=== PATIENT | female | born 1950 | race Caucasian/White ===

== ENCOUNTER → 2018-06-25 13:53 | Outpatient (CLI) | payer MEDICARE, SELFPAY ==
[2018-06-25 15:20] LABS: TSH 0.92 uIU/mL (0.358-3.74); Vitamin B12 341 pg/mL (193-986)
== END ==
PROVIDERS: Nurse Practitioner Adult Health; PCP Physician Assistant Medical; Visit Provider Psychiatry & Neurology Neurology
DX: G31.84 Mild cognitive impairment of uncertain or unknown etiology (principal)
CPT/HCPCS: 36415; 99215; 82607; 84443

== ENCOUNTER 2018-07-02 00:54 | Outpatient (CLI) | payer MEDICARE, SELFPAY ==
--- NOTE | 2018-07-02 08:30 | DI.MRI_ITS ---
SYMPTOM/DIAGNOSIS: COGNITIVE IMPAIRMENT, R41.89, MEMORY LOSS BRAIN MRI: Routine noncontrast examination. No priors for comparison. The ventricles and sulci are consistent with the patient's age. There are areas of T 2 hyperintensity in the white matter on the FLAIR and T 2 weighted images. The diffusion weighted images show no evidence of an acute infarct. No intracranial hemorrhage is seen. The ventricles are intact. The basilar cisterns are patent. No acute midline shift or mass effect is identified. There is a flow void present in the [place] of [place]. The orbits and retro- orbital soft tissues are unremarkable. IMPRESSION: Hyperintense T 2 signal in the white matter on the FLAIR and T 2 weighted images. The findings may reflect small vessel ischemic disease. Other demyelinating processes cannot be excluded. No evidence of an intracranial mass, hemorrhage or infarct.
== END 2018-07-02 01:14 ==
PROVIDERS: PCP Physician Assistant Medical; Visit Provider Nurse Practitioner Adult Health
DX: R41.89 Other symptoms and signs involving cognitive functions and awareness (principal); R41.3 Other amnesia
CPT/HCPCS: 70551

== ENCOUNTER 2018-10-06 15:01 | Outpatient (REF) | payer MEDICARE, SELFPAY ==
[2018-10-06 21:35] LABS: Abs Immature Grans 0.01 k/cumm (0.0-0.09); Absolute Basophil Count 0.05 k/cumm (0.0-0.2); Absolute Eosinophil Count 0.09 k/cumm (0.0-0.7); Absolute Lymphocyte Count 3.11 k/cumm (1.2-3.4); Absolute Neutrophil Count 5.92 k/cumm (1.2-6.7); Basophils % 0.5; Eosinophils % 0.9; HCT 37.2 % (36.0-46.0); HGB 11.9 g/dL (12.0-15.5); Immature Grans % 0.1; Lymphocytes % 31.2; Mean Corpuscular Volume 90.5 fL (80-95); Mean Platelet Volume 9.7 fL (8.0-11.0); Neutrophils % 59.3; Platelet Count 403 x1000/uL (130-400); RBC 4.11 m/cumm (4.00-5.20); White Blood Cell Count 9.98 k/cumm (4.4-10.8)
[2018-10-06 21:41] LABS: Iron 66 ug/dL (50-175); Total Iron Binding Capacity 311 ug/dL (250-450); Transferrin Sat 21 % (15-50)
[2018-10-06 22:06] LABS: ALT 16 U/L (12-78); AST 20 U/L (15-37); Albumin 3.8 g/dL (3.4-5.0); Alkaline Phosphatase 159 U/L (46-116); Anion Gap 12.7 mmol/L (3-11); BUN 20 mg/dL (7-18); Bilirubin, Total 0.5 mg/dL (0.2-1.0); CO2 25.3 mmol/L (21.0-32.0); CREATININE 1.09 mg/dL (0.55-1.02); Calcium 9.4 mg/dL (8.5-10.1); Chloride 100 mmol/L (98-107); Estimated GFR 49.92 (mL/min/1.73m2); Ferritin 74 ng/mL (8-388); Glucose 135 mg/dL (70-100); Potassium 4.1 mmol/L (3.5-5.1); Sodium 138 mmol/L (136-145); TSH (W/Ref FT4) 1.56 uIU/mL (0.358-3.74); Total Protein 7.5 g/dL (6.4-8.2); Vitamin B12 564 pg/mL (193-986)
== END 2018-10-06 15:21 ==
LOC: NCHCN 15:01
PROVIDERS: PCP Physician Assistant Medical; Visit Provider Specialist/Technologist Athletic Trainer
DX: D64.9 Anemia, unspecified (principal); R63.0 Anorexia; R63.4 Abnormal weight loss; R05 Cough
CPT/HCPCS: 80053; 82607; 82728; 82746; 83540; 83550; 84443; 85025

== ENCOUNTER 2018-11-04 00:44 | Outpatient (CLI) | payer MEDICARE, SELFPAY ==
--- NOTE | 2018-11-04 09:05 | DI.CT_ITS ---
SYMPTOM/DIAGNOSIS: RECENT WT LOSS, R63.4, H/O TOBACCU USE, Z87.891 CHEST/ABDOMEN/PELVIC CT: CT scan of the chest, abdomen and pelvis was performed following the uneventful administration of intravenous and oral contrast material. Comparison is made with 09/11/10. ABDOMEN AND PELVIS: The liver is normal in size. No evidence of a hepatic mass is seen. The portal and superior mesenteric veins are patent. The gallbladder is negative. No biliary ductal dilatation is present. There is no evidence of a pancreatic mass. The spleen is unremarkable as are the adrenal glands. The kidneys show normal and symmetric enhancement. No evidence of a solid renal mass or obstruction. There are hypodensities seen in the renal cortex. They are too small for further characterization but likely reflect small cysts. The urinary bladder is intact. The reproductive organs are unremarkable as visualized. There is atherosclerosis of the abdominal aorta but no aneurysmal dilatation is present. No significant abdominal or pelvic adenopathy, ascites or pneumoperitoneum is present. There is diverticulosis of the colon but no evidence of acute diverticulitis. There is a normal appendix present. There is diffuse thickening of the wall of the duodenum. The remainder of the bowel is unremarkable. No aggressive osseous lesions are seen. IMPRESSION: 1. No evidence of an abdominal or pelvic mass, adenopathy or ascites. 2. Diffuse thickening of the wall of the duodenum. This may represent an enteritis. Please correlate clinically. CHEST: There is atherosclerosis of the thoracic aorta but no aneurysmal dilatation is seen. Heart size is within normal limits. No significant pericardial effusion is seen. Coronary artery calcifications are present. No significant thoracic adenopathy is identified. No pleural effusion or pneumothorax is identified. No focal consolidating infiltrates are present. Paraseptal emphysematous changes and pulmonary fibrosis is noted. The tracheobronchial tree appears grossly unremarkable. Degenerative changes are seen in the spine. IMPRESSION: 1. Findings of pulmonary fibrosis and COPD. 2. No acute pulmonary process. No evidence of a pulmonary mass or thoracic adenopathy.
[2018-11-04] MEDS: Omnipaque 350 MG/ML 50 ML BTL IJ (09:26)
[2018-11-04] MEDS: Breeza Beverage 473 ML BTL PO (09:27)
[2018-11-04] MEDS: Omnipaque 350 MG/ML 100 ML BTL IJ (09:28)
--- NOTE | 2018-11-04 09:30 | DI.MAMMO_ITS ---
SYMPTOMS/DIAGNOSIS: SCREENING, Z12.31 MAMMOGRAM: Mammograms were interpreted according to the usual protocol including computer analysis with CAD system, tomosynthesis and C view imaging. Comparison with prior examinations. Breast density C. No suspicious masses or microcalcifications are seen. The well circumscribed mass with associated calcifications in the upper inner quadrant of the right breast appears stable. IMPRESSION: No evidence for malignancy. Yearly mammography is recommended. Category 2. MQSA ASSESSMENT OF FINDINGS: Negative with benign findings. Category 2. Patient will receive a letter notifying them of these results. Bi-RADS category C. The breasts are heterogeneously dense, which may obscure small masses.
== END 2018-11-04 01:04 ==
PROVIDERS: PCP Family Medicine; Visit Provider Nurse Practitioner Family
DX: Z12.31 Encounter for screening mammogram for malignant neoplasm of breast (principal); R63.4 Abnormal weight loss; J84.10 Pulmonary fibrosis, unspecified; J44.9 Chronic obstructive pulmonary disease, unspecified; K31.89 Other diseases of stomach and duodenum
CPT/HCPCS: 74177; 77063; 77067; 71260; J3490; Q9967

== ENCOUNTER 2019-02-18 10:16 | Outpatient (REF) | payer MEDICARE, SELFPAY ==
[2019-02-18 21:04] LABS: Cholesterol 253 mg/dL (50-200); HDL Cholesterol 82 mg/dL (40-60); LDL CHOLESTEROL 143 mg/dL (<100); Triglyceride 102 mg/dL (30-150)
== END 2019-02-18 10:36 ==
LOC: NCHCN 10:16
PROVIDERS: PCP Family Medicine; Visit Provider Nurse Practitioner Family
DX: E78.5 Hyperlipidemia, unspecified (principal)
CPT/HCPCS: 80061; 83721

== ENCOUNTER 2019-04-13 17:11 | Outpatient (REF) | payer MEDICARE, SELFPAY ==
[2019-04-13 20:44] LABS: Abs Immature Grans 0.05 k/cumm (0.0-0.09); Absolute Basophil Count 0.04 k/cumm (0.0-0.2); Absolute Eosinophil Count 0.06 k/cumm (0.0-0.7); Absolute Lymphocyte Count 2.13 k/cumm (1.2-3.4); Absolute Monocyte Count 0.67 k/cumm (0.11-0.7); Absolute Neutrophil Count 6.52 k/cumm (1.2-6.7); Basophils % 0.4; Eosinophils % 0.6; HCT 38.3 % (36.0-46.0); HGB 12.3 g/dL (12.0-15.5); Immature Grans % 0.5; Lymphocytes % 22.5; Mean Corp. HGB Concentration 32.1 g/dL (32.0-36.0); Mean Corpuscular Hemoglobin 29.1 pg (27.0-33.0); Mean Corpuscular Volume 90.8 fL (80-95); Mean Platelet Volume 10.7 fL (8.0-11.0); Monocytes % 7.1; Neutrophils % 68.9; Platelet Count 338 x1000/uL (130-400); RBC 4.22 m/cumm (4.00-5.20); RBC Distribution Width 13.1 % (11.7-14.6); White Blood Cell Count 9.47 k/cumm (4.4-10.8)
[2019-04-13 21:09] LABS: ALT 24 U/L (12-78); AST 21 U/L (15-37); Albumin 3.8 g/dL (3.4-5.0); Alkaline Phosphatase 155 U/L (46-116); Anion Gap 12.8 mmol/L (3-11); BUN 25 mg/dL (7-18); Bilirubin, Total 0.9 mg/dL (0.2-1.0); CO2 24.2 mmol/L (21.0-32.0); CREATININE 1.05 mg/dL (0.55-1.02); Calcium 9.4 mg/dL (8.5-10.1); Chloride 101 mmol/L (98-107); Estimated GFR 51.96 (mL/min/1.73m2); Glucose 101 mg/dL (70-100); Potassium 4.3 mmol/L (3.5-5.1); Sodium 138 mmol/L (136-145); TSH 1.24 uIU/mL (0.358-3.74); Total Protein 7.2 g/dL (6.4-8.2)
[2019-04-13 21:22] LABS: Vitamin D 25 Total 27.4 ng/ml (30-100)
== END 2019-04-13 17:31 ==
LOC: NCHCN 17:11
PROVIDERS: PCP Family Medicine; Visit Provider Nurse Practitioner Family
DX: I10 Essential (primary) hypertension (principal); R63.4 Abnormal weight loss; E55.9 Vitamin D deficiency, unspecified; J44.9 Chronic obstructive pulmonary disease, unspecified; R63.0 Anorexia
CPT/HCPCS: 80053; 82306; 84443; 85025

== ENCOUNTER → 2019-05-27 08:14 | Outpatient (BNVA) | payer MEDICARE, SELFPAY | PROVIDERS: PCP Family Medicine; Referring Provider Nurse Practitioner Family; Visit Provider Nurse Practitioner Adult Health | DX: G31.84 Mild cognitive impairment of uncertain or unknown etiology (principal); F32.9 Major depressive disorder, single episode, unspecified | CPT/HCPCS: 99214 ==

== ENCOUNTER 2019-06-04 10:42 | Outpatient (REF) | payer MEDICARE, SELFPAY ==
[2019-06-04 21:03] LABS: Abs Immature Grans 0.02 k/cumm (0.0-0.09); Absolute Basophil Count 0.03 k/cumm (0.0-0.2); Absolute Eosinophil Count 0.18 k/cumm (0.0-0.7); Absolute Lymphocyte Count 2.01 k/cumm (1.2-3.4); Absolute Monocyte Count 0.47 k/cumm (0.11-0.7); Absolute Neutrophil Count 5.43 k/cumm (1.2-6.7); Basophils % 0.4; Eosinophils % 2.2; HCT 36.2 % (36.0-46.0); HGB 11.4 g/dL (12.0-15.5); Immature Grans % 0.2; Lymphocytes % 24.7; Mean Corp. HGB Concentration 31.5 g/dL (32.0-36.0); Mean Corpuscular Hemoglobin 29.2 pg (27.0-33.0); Mean Corpuscular Volume 92.8 fL (80-95); Mean Platelet Volume 9.9 fL (8.0-11.0); Monocytes % 5.8; Neutrophils % 66.7; Platelet Count 290 x1000/uL (130-400); RBC Distribution Width 13.5 % (11.7-14.6); White Blood Cell Count 8.14 k/cumm (4.4-10.8)
[2019-06-04 21:16] LABS: Anion Gap 9.4 mmol/L (3-11); BUN 23 mg/dL (7-18); CO2 26.6 mmol/L (21.0-32.0); CREATININE 1.24 mg/dL (0.55-1.02); Calcium 9.4 mg/dL (8.5-10.1); Chloride 105 mmol/L (98-107); Estimated GFR 42.89 (mL/min/1.73m2); Glucose 92 mg/dL (70-100); Potassium 5.9 mmol/L (3.5-5.1); Sodium 141 mmol/L (136-145)
== END 2019-06-04 11:02 ==
LOC: NCHCN 10:42
PROVIDERS: PCP Family Medicine; Visit Provider Nurse Practitioner Family
DX: R55 Syncope and collapse (principal)
CPT/HCPCS: 80048; 85025

== ENCOUNTER 2019-06-23 15:00 | Outpatient (REF) | payer MEDICARE, SELFPAY ==
[2019-06-23 21:35] LABS: Potassium 4.5 mmol/L (3.5-5.1)
== END 2019-06-23 15:20 ==
LOC: NCHCN 15:00
PROVIDERS: PCP Family Medicine; Visit Provider Nurse Practitioner Family
DX: R89.9 Unspecified abnormal finding in specimens from other organs, systems and tissues (principal)
CPT/HCPCS: 84132

== ENCOUNTER 2019-06-26 02:50 | Outpatient (CLI) | payer MEDICARE, SELFPAY ==
--- NOTE | 2019-07-02 07:03 | HOLTER_ITS ---
HOLTER MONITOR DATE OF DICTATION July 01, 2019 Baseline rhythm sinus. Rare single PAC. 2 bursts SVT, longest 4-beat duration, fastest 174 beats per minute. Rare single PVC. No VT. No bradycardia. No symptoms. Average heart rate 93 beats per minute, range 66-134 beats per minute. 48-Hour Study. Tacos Goddard M.D. SHON/delvis T - 07/02/2019
== END 2019-06-26 03:10 ==
PROVIDERS: PCP Family Medicine; Visit Provider Nurse Practitioner Family
DX: R55 Syncope and collapse (principal); I47.1 Supraventricular tachycardia
CPT/HCPCS: 93225

== ENCOUNTER 2019-06-29 14:59 | Outpatient (CLI) | payer MEDICARE, SELFPAY | END 2019-06-29 15:19 | PROVIDERS: PCP Family Medicine; Visit Provider Nurse Practitioner Family | DX: R55 Syncope and collapse (principal); I47.1 Supraventricular tachycardia | CPT/HCPCS: 93226 ==

== ENCOUNTER 2019-07-01 17:38 | Outpatient (CLI) | payer MEDICARE, SELFPAY | END 2019-07-01 17:58 | PROVIDERS: PCP Family Medicine; Referring Provider Family Medicine; Visit Provider Internal Medicine Interventional Cardiology | DX: R55 Syncope and collapse (principal); I47.1 Supraventricular tachycardia | CPT/HCPCS: 93227 ==

== ENCOUNTER 2019-07-30 02:07 | Outpatient (CLI) | payer MEDICARE, SELFPAY ==
--- NOTE | 2019-07-30 10:20 | DI.US_ITS ---
APPROVED REPORT EXAM: Comprehensive 2D, Doppler, and color-flow Echocardiogram Indications: syncope r55. ? valve disease or diastolic heart dysfunction Left Ventricle The left ventricle is normal. Left ventricular systolic function is normal. The posterior wall thickn ess is normal. The septum is normal. There is normal LV segmental wall motion. There is grade 1 diast olic dysfunction with normal left atrial pressure. LVEF is 50-54%. Right Ventricle The right ventricle is normal size. The right ventricular systolic function is normal. Atria The left atrium is small. The right atrium size is normal. Aortic Valve Aortic valve is probably trileaflet. There is no aortic valvular stenosis. Moderate aortic regurgitat ion. Mitral Valve The anterior mitral valve is mildly thickened. 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 Tricuspid Valve The tricuspid valve is normal in structure. Mild tricuspid regurgitation. TR V-max equals 2.82 m/s. T R peak gradient equals 31.8 mmHg Pulmonic Valve The pulmonary valve is normal in structure. Great Vessels The aortic root size is normal. The IVC is normal in size and collapses >50% with inspiration. Pericardium There is no pericardial effusion. There is no pleural effusion. 2D Dimensions IVSd 0.9 cm F: 0.6-1.0 PWd 0.9 cm F: 0.6 - 1.0 LVDd 4.0 cm F: 3.9 - 5.3 LVDs 2.8 cm F: 2.2 - 3.5 Aortic Root 3.1 cm F: 2.7 - 3.3 Left Atrium 2.4 cm F: 2.7 - 3.8 LVOT 1.9 cm (M/F) 1.5-2.5 LVEF (Guerrero's) 54.5 % F: 54 - 74 LV Volume Index 33.8 mL/m2 F: 29 - 61 FS 29.8 % LV Diastology E/A Ratio 0.7 MED E' 0.1 (<0.07 m/s) LV E/e MED 6.3 (>14) LAT E' 0.1 (<0.1 m/s) LV E/e LAT 4.9 (>14) Aortic Valve LVOT Peak Valeriano. 1.2 m/s LVOT Peak Gr. 5.7 mmHg LVOT Mean Gr. 3.0 mmHg LVOT VTI 0.2 m AI PHT 328.5 msec AO VTI 0.3 (0.18-0.25 m) FARA (VTI) 1.2 (2.5-4.5 cm2) Mitral Valve MV A Velocity 0.7 (0.4-1.3 m/s) E/A Ratio 0.7 MV Decel. Time 229.0 (160-240 msec) MV PHT 66.4 msec MVA PHT 3.3 cm2 Tricuspid Valve TR P. Velocity 2.8 m/s TR P. Gradient 31.8 mmHg Conclusion Left Ventricle : The left ventricle is normal. Left ventricular systolic function is normal. The post erior wall thickness is normal. The septum is normal. There is normal LV segmental wall motion. There is grade 1 diastolic dysfunction with normal left atrial pressure. LVEF is 50-54%. Right Ventricle : The right ventricle is normal size. The right ventricular systolic function is norm al. Atria : The left atrium is small. The right atrium size is normal. Aortic Valve : Aortic valve is probably trileaflet. There is no aortic valvular stenosis. Moderate a ortic regurgitation. Mitral Valve : The anterior mitral valve is mildly thickened. 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 Tricuspid Valve : The tricuspid valve is normal in structure. Mild tricuspid regurgitation. TR V-max equals 2.82 m/s. TR peak gradient equals 31.8 mmHg which corresponds with an RV pressure that is edison rderline elevated. Great Vessels : The aortic root size is normal. Pericardium : There is no pericardial effusion. There is no pleural effusion. Great Vessels : The IVC is normal in size and collapses >50% with inspiration.
== END 2019-07-30 02:27 ==
PROVIDERS: PCP Nurse Practitioner Family; Visit Provider Nurse Practitioner Family
DX: R55 Syncope and collapse (principal); I50.1 Left ventricular failure, unspecified; I35.1 Nonrheumatic aortic (valve) insufficiency; I36.1 Nonrheumatic tricuspid (valve) insufficiency
CPT/HCPCS: 93306

== ENCOUNTER 2019-08-03 01:09 | Outpatient (CLI) | payer MEDICARE, SELFPAY ==
--- NOTE | 2019-08-03 15:19 | DI.MRI_ITS ---
EXAM: MR BRAIN WO CLINICAL HISTORY: COGNITIVE CHANGES R41.89. TECHNIQUE: Multiplanar multisequence MRI was performed. COMPARISON: MR brain wo from 07/02/2018 FINDINGS: MR examination of brain was performed according to the usual protocol. There is mild generalized cer ebral atrophy there are periventricular areas of abnormal signal consistent microvascular ischemic ch anges, little interval change in appearance comparison previous examination 03/16/2018. No other sig nificant signal identified in the brain. The orbital and temporal bone structures appear intact. Th ere is grossly normal flow-void [id number] vasculature. Diffusion-weighted imaging shows no ev idence infarction. Susceptibility weighted imaging shows no evidence of hemorrhage. IMPRESSION: Findings consistent with microvascular ischemic changes of white matter. No gross interval change fr om 07/02/2018.
== END 2019-08-03 01:29 ==
PROVIDERS: PCP Nurse Practitioner Family; Visit Provider Nurse Practitioner Family
DX: R41.89 Other symptoms and signs involving cognitive functions and awareness (principal); R90.82 White matter disease, unspecified
CPT/HCPCS: 70551

== ENCOUNTER 2019-09-22 11:03 | Outpatient (REF) | payer MEDICARE, SELFPAY ==
[2019-09-22 19:51] LABS: Anion Gap 10.9 mmol/L (3-11); BUN 44 mg/dL (7-18); CO2 26.1 mmol/L (21.0-32.0); CREATININE 1.42 mg/dL (0.55-1.02); Calcium 9.4 mg/dL (8.5-10.1); Chloride 103 mmol/L (98-107); Estimated GFR 36.68 (mL/min/1.73m2); Glucose 94 mg/dL (74-106); Sodium 140 mmol/L (136-145)
== END 2019-09-22 11:23 ==
LOC: NCHCN 11:03
PROVIDERS: PCP Nurse Practitioner Family; Visit Provider Nurse Practitioner Family
DX: I10 Essential (primary) hypertension (principal)
CPT/HCPCS: 80048

== ENCOUNTER 2019-10-02 07:46 | Outpatient (CLI) | payer MEDICARE, SELFPAY | END 2019-10-02 08:06 | PROVIDERS: PCP Nurse Practitioner Family; Visit Provider Internal Medicine Cardiovascular Disease | DX: I51.89 Other ill-defined heart diseases (principal); I35.1 Nonrheumatic aortic (valve) insufficiency | CPT/HCPCS: 99204; 99215; 93005; 93010 ==

== ENCOUNTER 2019-10-15 10:22 | Outpatient (CLI) | payer MEDICARE, SELFPAY ==
--- NOTE | 2019-10-15 11:45 | DI.RAD_ITS ---
EXAM: XR SHOULDER LT COMPLETE 2+V CLINICAL HISTORY: LT SHOULDER PAIN, M25.512, LT SHOULDER AND SCAPULAR PAIN AFTER FALL TECHNIQUE: COMPARISON: No exams were available for comparison FINDINGS: Five views were obtained. There soft tissue calcifications which appear to be projected adjacent to the tip of the coracoid. There is an apparent small bone island of the humeral head. No other bony or soft tissue abnormality seen. IMPRESSION:
== END 2019-10-15 10:42 ==
PROVIDERS: PCP Nurse Practitioner Family; Visit Provider Nurse Practitioner Family
DX: M25.512 Pain in left shoulder (principal); M89.8X2 Other specified disorders of bone, upper arm
CPT/HCPCS: 73030

== ENCOUNTER 2019-10-19 07:08 | Inpatient (IN) | payer MEDICARE, SELFPAY ==
[2019-10-19] VITALS (63 sets, daily range): BP systolic 128–190; BP diastolic 50–95; PULSE 94–134; RESP 14–31; TEMP 36.6–37.6; O2SAT 92–97
--- NOTE | 2019-10-19 07:28 | ED.GENADUL_ITS ---
Discharge Plan Discharge Details Chief Complaint: GenMedical Primary Care Provider: Jojo Burrell ED Provider: Peg Wilson Home Meds and New Rx's Prescriptions: No Action Spiriva with HandiHaler 18 mcg capsule, w/inhalation device 1 cap IH DAILY RF: 0 cyclobenzaprine 10 mg tablet 10 mg PO TID RF: 0 ranitidine HCl 300 mg capsule 300 mg PO BID RF: 0 cyanocobalamin (vitamin B-12) 1,000 mcg capsule 1,000 mcg PO DAILY RF: 0 cholecalciferol (vitamin D3) 1,000 unit capsule 1,000 unit PO DAILY RF: 0 sertraline [Zoloft] 50 mg tablet 150 mg PO DAILY RF: 0 memantine [Namenda] 5 mg Tablet 5 mg PO QPM RF: 0 atorvastatin [Lipitor] 20 mg Tablet 20 mg PO QPM RF: 0 Medical Decision Making Aury Alva is a 69-year-old woman with a history of alcohol abuse until 2017, progressive memory/cognitive problems, hypertension, hyperlipidemia, COPD, depression, rheumatoid arthritis who presented to the emergency department with worsening mental status, not eating or drinking for the past 3 days. I discussed the patient with Jojo Burrell, patient's PCP, who reported that due to her memory issues patient is a poor historian.in addition, patient's has a history of TBI and is also a poor historian. Jojo had reports that patient has a long history of heavy marijuana use with marijuana being purchased from questionable sources and thus with possible contaminants, decreased appetite and weight loss over the past year. She reports that when she saw the patient 2 weeks ago, patient had continued memory issues but was interactive, verbal, able to partake in her own self-care. It does appear that patient's physical examination today does not represent a chronic progressive process. Concern for altered mental status of unknown etiology, possible metabolic/electrolyte derangement, UTI, occult pneumonia, neoplasm, CVA. Doubt meningitis, ACS, toxic ingestion/exposure as etiology. Plan for EKG, CT head, chest x-ray, screening labs, IV fluid hydration, telemetry. Anticipate admission. Difficulty obtaining CT head. Patient tries to lie on her left side repeatedly well on CT table. She does not appear to be in any discomfort, and does not appear agitated, but does not follow instructions. Ativan given, 0.5 mg x 3, able to obtain CT head. CT head negative for acute process. Chest x-ray only able to be obtained in left lateral decubitus position secondary to patient not cooperating. Question of by basilar infiltrate per radiology, however patient has no clinical pneumonia on exam. Will hold antibiotics at this time. Calcium 14. Unclear etiology, plan for continued IV fluid hydration, calcitonin. Call Dr. Wilkes for admission, who requested abdominal imaging given elevated liver enzymes. Given difficulty with obtaining CT head, plan for ultrasound abdomen/pelvis, at this time do not suspect non-hepatobiliary emergent intra-abdominal process, given Pt not complaining of pain, no vomiting or diarrhea, no abdominal tenderness to palpation. Ultrasound shows cirrhosis. Procalcitonin 12. At this time given possible pneumonia on chest x-ray, no source of patient's altered mental status, delays with imaging, plan for empiric antibiotics. Will attempt CT chest/abdomen/pelvis with IM Haldol for further delineation. Patient underwent CT chest abdomen pelvis without issue after Haldol, shows possible primary pulmonary mass with likely metastatic disease to bone, liver, also with adenopathy. I informed patient's of results. He wishes for patient to be admitted to the hospital for IV fluid hydration, electrolyte correction, understands patient with poor prognosis and ultimately would like patient to go home on hospice. Plan for admission. Medical Records Medical records reviewed: Yes I reviewed the patient's medical records. Imaging Data Radiologic Study: Attestation: I personally reviewed and interpreted this imaging study as follows: Radiologist's impression: EXAM: CT CHEST/ABD/PEL W CLINICAL HISTORY: AMS, elevated LFTs, poor quality CXR TECHNIQUE: Imaging Protocol: Axial computed tomography images with coronal and sagittal reformatted images were created and reviewed CONTRAST MATERIAL: Intravenous: Omnipaque 350 Contrast volume:100 mL contrast route:IV - Oral: No FINDINGS: CHEST: Tracheobronchial tree: Patent where visualized. Mediastinum and Jacqueline: There are enlarged mediastinal lymph nodes. The largest is in the subcarinal region and measures 3.6 x 3.1 centimeters. Right hilar adenopathy is present. Pulmonary parenchyma: There is a 2.3 x 2 centimeter soft tissue mass in the right lower lobe. Findings are suspicious for primary lung cancer. Dependent atelectatic changes are seen in the lungs. Paraseptal emphysematous changes are seen in the lungs. No focal consolidating infiltrates are present. Pleura: No effusion or pneumothorax. Lymph nodes: Mediastinal and right hilar adenopathy as discussed above Aorta: Atherosclerosis. Heart: No cardiomegaly or pericardial effusion. Coronary artery calcifications are present. Bones: Lucencies are seen in the bones suspicious for metastatic disease. There is cortical disruption seen at the anterior aspect of the T12 vertebral body. ABDOMEN: Liver: There are innumerable hypodense masses scattered throughout the liver. Portal, superior mesenteric and splenic veins are patent. Hepatomegaly. Gallbladder and biliary tract: No radiodense calculus or dilation. Pancreas: Normal density, no abnormal calcifications or inflammatory process. Spleen: Normal. Kidneys: Normal size, contour and axis. No radiodense stones or obstructive uropathy. No masses seen. Adrenal glands: There nodularity of the left adrenal gland. The right adrenal gland is unremarkable. Aorta: Atherosclerosis. No aneurysmal dilatation. Lymph nodes: Within normal limits. PELVIS: Bladder: Symmetric distention, no gross wall thickening. Bowel: There is diverticulosis of the colon but no evidence of acute diverticulitis. Bowel shows no evidence of obstruction or inflammation. There is no evidence of an acute appendicitis. A normal appendix is seen in the right lower quadrant. Peritoneal cavity: There is a small amount of pelvic ascites. No pneumoperitoneum is present. Bones: Degenerative changes are seen in the spine. There are lucencies seen in the bones suspicious for metastatic disease. Reproductive organs: Within normal limits as visualized. IMPRESSION: 1. Multiple hepatic masses suspicious for metastatic disease. 2. Bones suspicious for metastatic disease. 3. Small amount of pelvic ascites. 4. 2.3 x 2 centimeter soft tissue mass in the right lower lobe suspicious for primary pulmonary carcinoma. 5. Thoracic adenopathy. EXAM: CT HEAD WO CLINICAL HISTORY: AMS TECHNIQUE: The exam was performed according to the usual protocol without contrast. COMPARISON: No exams were available for comparison FINDINGS: The ventricles and sulci are consistent with the patient's age. There are areas of decreased attenuation in the white matter consistent with small vessel ischemic disease. No acute intracranial hemorrhage, midline shift or mass effect is present. The ventricles are intact. The basilar cisterns are patent. Visualized paranasal sinuses are clear. The mastoid air cells are well pneumatized. The calvarium is intact. IMPRESSION: No acute intracranial process. These findings were discussed with the emergency department on the date of the examination. EXAM: XR CHEST 2V PA LATERAL INDICATION: AMS. COMPARISON: CHEST 2 VIEWS PA,LAT from 05/19/2018 TECHNIQUE: 2D digital imaging was performed. FINDINGS: The study is suboptimal due to patient positioning and external artifact. The heart size and pulmonary vasculature are within normal limits. There is a question of an infiltrate seen in the lung bases bilaterally. No effusion is seen. No definite pneumothorax is appreciated. Degenerative changes are seen in the spine. IMPRESSION: 1. Suboptimal examination due to patient positioning. A repeat PA and lateral view of the chest should be considered for further evaluation. 2. Question of bilateral basilar infiltrate. This may represent atelectasis or pneumonia. Please correlate clinically. EXAM: US ABDOMEN CLINICAL HISTORY: AMS, elevated liver enzymes TECHNIQUE: Ultrasound performed using standard protocol. FINDINGS: The aorta is unremarkable. The inferior vena cava is unremarkable. The liver is enlarged measuring 19.6 centimeters. It is heterogeneous. No discrete mass is seen. There is a lobulated contour of the liver suggesting hepatic cirrhosis. There is hepatopetal flow through the portal vein. The gallbladder is unremarkable. There is a negative sonographic Mae sign. The common duct is within normal limits at 3 millimeters. The spleen, pancreas and kidneys are unremarkable. No free fluid is seen in the abdomen. IMPRESSION: Enlarged heterogeneous liver with findings suggestive of hepatic cirrhosis. No evidence of a hepatic mass sonographically. Lab Data Lab results reviewed: Yes I reviewed the patient's lab results. Labs: 10/19/19 08:30 Blood Blood Culture - Pending 10/19/19 08:15 Blood Blood Culture - Pending Laboratory Tests Range/Units 10/19/19 10/19/19 10/19/19 07:30 07:30 07:30 WBC (4.4-10.8) k/cumm 11.64 H RBC (4.00-5.20) m/cumm 4.70 Hgb (12.0-15.5) g/dL 13.2 Hct (36.0-46.0) % 39.5 MCV (80-95) fL 84.0 MCH (27.0-33.0) pg 28.1 MCHC (32.0-36.0) g/dL 33.4 RDW (11.7-14.6) % 14.5 Plt Count (130-400) x1000/uL 211 MPV (8.0-11.0) fL 11.7 H Immature Gran % 0.8 Neutrophils % 79.4 Lymphocytes % 11.3 Monocytes % 8.3 Eosinophils % 0.0 Basophils % 0.2 Absolute Neutrophils (1.2-6.7) k/cumm 9.24 H Absolute Lymphocytes (1.2-3.4) k/cumm 1.32 Absolute Monocytes (0.11-0.7) k/cumm 0.97 H Absolute Eosinophils (0.0-0.7) k/cumm 0.00 Absolute Basophils (0.0-0.2) k/cumm 0.02 Sodium (136-145) mmol/L 130 L Potassium (3.5-5.1) mmol/L 3.9 Chloride (98-107) mmol/L 94 L Carbon Dioxide (21.0-32.0) mmol/L 28.4 Anion Gap (3-11) mmol/L 7.6 BUN (7-18) mg/dL 28 H Creatinine (0.55-1.02) mg/dL 1.09 H Estimated GFR/1.73 m2 (mL/min/1.73m2) 49.77 Glucose (74-106) mg/dL 108 H Lactate (0.6-1.4) mmol/L 1.6 H Calcium (8.5-10.1) mg/dL 14.0 H* Magnesium (1.8-2.4) mg/dL 1.5 L Total Bilirubin (0.2-1.0) mg/dL 1.4 H AST (15-37) U/L 377 H ALT (14-59) U/L 118 H Alkaline Phosphatase (46-116) U/L 351 H Ammonia (11-32) umol/L Troponin I (<0.06) ng/Ml < 0.05 Total Protein (6.4-8.2) g/dL 8.2 Albumin (3.4-5.0) g/dL 4.0 Procalcitonin ng/mL TSH (0.36-3.74) uIU/mL 2.23 Urine Color (Yellow) Urine Clarity (Clear) Urine pH (5-8) Ur Specific Windfall (1.005-1.025) Urine Protein (Negative) mg/dL Urine Ketones (Negative) mg/dL Urine Blood (Negative) Urine Nitrite (Negative) Urine Bilirubin (Negative) Urine Urobilinogen (Up TO 0.2) EU/dL Ur Leukocyte Esterase (Negative) Urine RBC (0-2) HPF Urine WBC (0-5) HPF Ur Epithelial Cells (Negative) HPF Urine Crystals (Negative) HPF Urine Bacteria (Negative) HPF Urine Casts (Negative) LPF Urine Mucus (Negative) Urine Other (Negative) Ur Culture Indicated? Urine Glucose (Negative) mg/dL Urine Opiates Screen (Negative) Urine Methadone Screen (Negative) Acetaminophen (10-30) ug/mL Ur Barbiturates Screen (Negative) Ur Tricyclics Screen (Negative) Ur Amphetamines Screen (Negative) U Benzodiazepines Scrn (Negative) Urine Cocaine Screen (Negative) Ur THC Screen (Negative) Range/Units 10/19/19 10/19/19 10/19/19 07:30 08:06 08:06 WBC (4.4-10.8) k/cumm RBC (4.00-5.20) m/cumm Hgb (12.0-15.5) g/dL Hct (36.0-46.0) % MCV (80-95) fL MCH (27.0-33.0) pg MCHC (32.0-36.0) g/dL RDW (11.7-14.6) % Plt Count (130-400) x1000/uL MPV (8.0-11.0) fL Immature Gran % Neutrophils % Lymphocytes % Monocytes % Eosinophils % Basophils % Absolute Neutrophils (1.2-6.7) k/cumm Absolute Lymphocytes (1.2-3.4) k/cumm Absolute Monocytes (0.11-0.7) k/cumm Absolute Eosinophils (0.0-0.7) k/cumm Absolute Basophils (0.0-0.2) k/cumm Sodium (136-145) mmol/L Potassium (3.5-5.1) mmol/L Chloride (98-107) mmol/L Carbon Dioxide (21.0-32.0) mmol/L Anion Gap (3-11) mmol/L BUN (7-18) mg/dL Creatinine (0.55-1.02) mg/dL Estimated GFR/1.73 m2 (mL/min/1.73m2) Glucose (74-106) mg/dL Lactate (0.6-1.4) mmol/L Calcium (8.5-10.1) mg/dL Magnesium (1.8-2.4) mg/dL Total Bilirubin (0.2-1.0) mg/dL AST (15-37) U/L ALT (14-59) U/L Alkaline Phosphatase (46-116) U/L Ammonia (11-32) umol/L Troponin I (<0.06) ng/Ml Total Protein (6.4-8.2) g/dL Albumin (3.4-5.0) g/dL Procalcitonin ng/mL TSH (0.36-3.74) uIU/mL Urine Color (Yellow) Yellow Urine Clarity (Clear) Clear Urine pH (5-8) 5.5 Ur Specific Windfall (1.005-1.025) >= 1.030 H Urine Protein (Negative) mg/dL 100 H Urine Ketones (Negative) mg/dL Trace H Urine Blood (Negative) Small H Urine Nitrite (Negative) Negative Urine Bilirubin (Negative) Small H Urine Urobilinogen (Up TO 0.2) EU/dL 0.2 Ur Leukocyte Esterase (Negative) Negative Urine RBC (0-2) HPF 0-2 Urine WBC (0-5) HPF 3-5 Ur Epithelial Cells (Negative) HPF Few Urine Crystals (Negative) HPF Few amorphous Urine Bacteria (Negative) HPF Few Urine Casts (Negative) LPF 0-2 coarse granular Urine Mucus (Negative) Negative Urine Other (Negative) Ur Culture Indicated? No Urine Glucose (Negative) mg/dL Negative Urine Opiates Screen (Negative) Negative Urine Methadone Screen (Negative) Negative Acetaminophen (10-30) ug/mL < 2 L Ur Barbiturates Screen (Negative) Negative Ur Tricyclics Screen (Negative) Negative Ur Amphetamines Screen (Negative) Negative U Benzodiazepines Scrn (Negative) Negative Urine Cocaine Screen (Negative) Negative Ur THC Screen (Negative) Positive A Range/Units 10/19/19 10/19/19 10/19/19 10:53 12: 12:25 WBC (4.4-10.8) k/cumm RBC (4.00-5.20) m/cumm Hgb (12.0-15.5) g/dL Hct (36.0-46.0) % MCV (80-95) fL MCH (27.0-33.0) pg MCHC (32.0-36.0) g/dL RDW (11.7-14.6) % Plt Count (130-400) x1000/uL MPV (8.0-11.0) fL Immature Gran % Neutrophils % Lymphocytes % Monocytes % Eosinophils % Basophils % Absolute Neutrophils (1.2-6.7) k/cumm Absolute Lymphocytes (1.2-3.4) k/cumm Absolute Monocytes (0.11-0.7) k/cumm Absolute Eosinophils (0.0-0.7) k/cumm Absolute Basophils (0.0-0.2) k/cumm Sodium (136-145) mmol/L 141 D Potassium (3.5-5.1) mmol/L 4.0 Chloride (98-107) mmol/L 103 Carbon Dioxide (21.0-32.0) mmol/L 27.1 Anion Gap (3-11) mmol/L 10.9 BUN (7-18) mg/dL 25 H Creatinine (0.55-1.02) mg/dL 1.03 H Estimated GFR/1.73 m2 (mL/min/1.73m2) 53.13 Glucose (74-106) mg/dL 100 Lactate (0.6-1.4) mmol/L 1.4 Calcium (8.5-10.1) mg/dL 12.0 H* Magnesium (1.8-2.4) mg/dL Total Bilirubin (0.2-1.0) mg/dL 1.2 H AST (15-37) U/L 322 H ALT (14-59) U/L 101 H Alkaline Phosphatase (46-116) U/L 291 H Ammonia (11-32) umol/L Troponin I (<0.06) ng/Ml 0.05 Total Protein (6.4-8.2) g/dL 6.9 Albumin (3.4-5.0) g/dL 3.4 Procalcitonin ng/mL 12.2 TSH (0.36-3.74) uIU/mL Urine Color (Yellow) Urine Clarity (Clear) Urine pH (5-8) Ur Specific Windfall (1.005-1.025) Urine Protein (Negative) mg/dL Urine Ketones (Negative) mg/dL Urine Blood (Negative) Urine Nitrite (Negative) Urine Bilirubin (Negative) Urine Urobilinogen (Up TO 0.2) EU/dL Ur Leukocyte Esterase (Negative) Urine RBC (0-2) HPF Urine WBC (0-5) HPF Ur Epithelial Cells (Negative) HPF Urine Crystals (Negative) HPF Urine Bacteria (Negative) HPF Urine Casts (Negative) LPF Urine Mucus (Negative) Urine Other (Negative) Ur Culture Indicated? Urine Glucose (Negative) mg/dL Urine Opiates Screen (Negative) Urine Methadone Screen (Negative) Acetaminophen (10-30) ug/mL Ur Barbiturates Screen (Negative) Ur Tricyclics Screen (Negative) Ur Amphetamines Screen (Negative) U Benzodiazepines Scrn (Negative) Urine Cocaine Screen (Negative) Ur THC Screen (Negative) Range/Units 10/19/19 13:16 WBC (4.4-10.8) k/cumm RBC (4.00-5.20) m/cumm Hgb (12.0-15.5) g/dL Hct (36.0-46.0) % MCV (80-95) fL MCH (27.0-33.0) pg MCHC (32.0-36.0) g/dL RDW (11.7-14.6) % Plt Count (130-400) x1000/uL MPV (8.0-11.0) fL Immature Gran % Neutrophils % Lymphocytes % Monocytes % Eosinophils % Basophils % Absolute Neutrophils (1.2-6.7) k/cumm Absolute Lymphocytes (1.2-3.4) k/cumm Absolute Monocytes (0.11-0.7) k/cumm Absolute Eosinophils (0.0-0.7) k/cumm Absolute Basophils (0.0-0.2) k/cumm Sodium (136-145) mmol/L Potassium (3.5-5.1) mmol/L Chloride (98-107) mmol/L Carbon Dioxide (21.0-32.0) mmol/L Anion Gap (3-11) mmol/L BUN (7-18) mg/dL Creatinine (0.55-1.02) mg/dL Estimated GFR/1.73 m2 (mL/min/1.73m2) Glucose (74-106) mg/dL Lactate (0.6-1.4) mmol/L Calcium (8.5-10.1) mg/dL Magnesium (1.8-2.4) mg/dL Total Bilirubin (0.2-1.0) mg/dL AST (15-37) U/L ALT (14-59) U/L Alkaline Phosphatase (46-116) U/L Ammonia (11-32) umol/L 13 Troponin I (<0.06) ng/Ml Total Protein (6.4-8.2) g/dL Albumin (3.4-5.0) g/dL Procalcitonin ng/mL TSH (0.36-3.74) uIU/mL Urine Color (Yellow) Urine Clarity (Clear) Urine pH (5-8) Ur Specific Windfall (1.005-1.025) Urine Protein (Negative) mg/dL Urine Ketones (Negative) mg/dL Urine Blood (Negative) Urine Nitrite (Negative) Urine Bilirubin (Negative) Urine Urobilinogen (Up TO 0.2) EU/dL Ur Leukocyte Esterase (Negative) Urine RBC (0-2) HPF Urine WBC (0-5) HPF Ur Epithelial Cells (Negative) HPF Urine Crystals (Negative) HPF Urine Bacteria (Negative) HPF Urine Casts (Negative) LPF Urine Mucus (Negative) Urine Other (Negative) Ur Culture Indicated? Urine Glucose (Negative) mg/dL Urine Opiates Screen (Negative) Urine Methadone Screen (Negative) Acetaminophen (10-30) ug/mL Ur Barbiturates Screen (Negative) Ur Tricyclics Screen (Negative) Ur Amphetamines Screen (Negative) U Benzodiazepines Scrn (Negative) Urine Cocaine Screen (Negative) Ur THC Screen (Negative) ECG Data Attestation: I personally reviewed and interpreted this ECG (s) as follows: Interpretation: EKG shows sinus tachycardia 108 with normal axis, T wave inversion aVL, present on prior, change in ST morphology of V2 compared to prior, no STEMI, nondiagnostic EKG HPI General Mode of arrival: EMS . Date/Time Provider Initiated Documentation: 10/19/19 07:18 . Limitations to Documentation: altered mental status . Information obtained by: patient and family . HPI Narrative: Aury Alva is a 69-year-old woman with a history of hyperlipidemia, hypertension, GERD, depression, rheumatoid arthritis, cognitive decline presenting to the emergency department with 3 days of not eating or drinking. Patient is accompanied by her who provides most of the history. Per record review and 's report, patient has history of heavy alcohol use that ended in 2016. During that same year, patient also began to have apparent short-term memory issues. She has had progressive cognitive decline since that time, and saw neurology for this 05/15 and brain MRI 08/15 with no acute process identified. Patient has also had history of severe depression in the past few years and 4 times daily marijuana usage up until the past 3 days. Patient's reports that patient's memory and cognitive problems seem to have become much worse in the last 1 to 2 months. She has become incontinent of urine, she does not get out of bed, and she has become minimally verbal. Patient's reports that in the past 3 days patient has stopped eating or drinking anything. She also essentially does not walk at all at home. Patient's reports that she seems restless and agitated and has not been sleeping at all the past few nights either. He reports that he is concerned that she is in the process of dying. He states that if there is anything that can be done to make her more comfortable he would like that done today in the emergency department, but he states that he would like to bring her home to continue to care for her there. Related Data Home Medications Medication Instructions Recorded Confirmed cholecalciferol (vitamin D3) 25 1,000 unit PO DAILY 04/20/19 10/19/19 mcg (1,000 unit) capsule cyanocobalamin (vitamin B-12) 1,000 mcg PO DAILY 04/20/19 10/19/19 1,000 mcg capsule cyclobenzaprine 10 mg tablet 10 mg PO TID 04/20/19 10/19/19 ranitidine HCl 300 mg capsule 300 mg PO BID cap 04/20/19 10/19/19 tiotropium bromide 18 mcg capsule 1 cap IH DAILY 04/20/19 10/19/19 with inhalation device sertraline 50 mg tablet 150 mg PO DAILY tab 09/22/19 10/19/19 atorvastatin [Lipitor] 20 mg PO QPM 10/19/19 10/19/19 memantine [Namenda] 5 mg PO QPM 10/19/19 10/19/19 Allergies Allergy/AdvReac Type Severity Reaction Status Date / Time hydrochlorothiazide Allergy Intermediate swelling Unverified 10/19/19 09:20 Penicillins Allergy Mild rash Unverified 10/19/19 09:20 aspirin AdvReac Intermediate GI upset Unverified 10/19/19 09:20 codeine AdvReac Intermediate shakey and Unverified 10/19/19 09:20 jittery Caffiene AdvReac Intermediate GI Uncoded 10/19/19 09:20 Upset/pain General Stated Complaint: GenMedical RALPH: 3 Review of Systems Narrative: Constitutional: denies fevers, reports decreased appetite, weight loss, generalized weakness Eyes: denies eye pain ENT: denies ear pain, dental pain, sore throat Cardiovascular: denies chest pain Respiratory: denies SOB, cough GI: denies abdominal pain, vomiting, diarrhea : denies flank pain MSK: denies back pain, neck pain, arthralgias, myalgias Skin: denies rash Neuro: denies headaches, focal weakness Patient cannot provide review of systems, review of systems provided by . [facility] Medical History Abnormal liver function test Adenomatous colon polyp Degenerative joint disease Depression with anxiety Elevated blood pressure reading without diagnosis of hypertension Epicondylitis elbow, medial Fibromyalgia Gastritis History of alcohol abuse Quit February 2017 Hx of rheumatic fever Hx of skin cancer, basal cell Hyperlipidemia Insomnia Itch of skin Mild cognitive impairment (Acute) Murmur, cardiac Nightmares Osteopenia Reflux esophagitis Situational stress Spastic colon Tinea unguium Social History Smoking/Tobacco Use Status: Current every day Tobacco Type: cigarettes Alcohol Intake: former Year quit: 2016 Drug use: Daily Substance use type: marijuana Details: Hx of LSD and mushroom use Household members: significant other Exam Narrative Exam Narrative: Constitutional: Cachectic, chronically ill-appearing, restless, lying down and sitting up repeatedly in bed HENT: head atraumatic/normocephalic/normal inspection, mucous membranes dry Eyes: conjunctiva normal, sclera normal, pupils 3mm b/l Neck: no stridor, normal ROM, trachea midline Chest: normal inspection Resp: normal work of breathing, LCTAB Cardio: Tachycardic rate, normal rhythm, no murmur appreciated GI: abdomen soft, non-tender, non-distended Back: normal inspection, no rash Skin: warm, dry, normal color, no rash Neuro: alert, nods head yes or no to questions appropriately but is nonverbal during my examination, not oriented, otherwise grossly non-focal, normal tone Ext: no edema no posterior calf tenderness Course Vital Signs Vital signs: Vital Signs Temperature 36.6 C 10/19/19 07:12 Pulse 109 H 10/19/19 07:12 Respiratory Rate 20 10/19/19 07:12 Blood Pressure 154/62 H 10/19/19 07:12 Pulse Oximetry 96 10/19/19 07:12 Temperature 36.6 C 10/19/19 07:12 Temperature Source Skin 10/19/19 07:12 Pulse 109 H 10/19/19 07:12 Respiratory Rate 20 10/19/19 07:12 Respiratory Effort Non-Labored 10/19/19 07:12 Blood Pressure 154/62 H 10/19/19 07:12 Pulse Oximetry 96 10/19/19 07:12 Oxygen Delivery Method Room Air 10/19/19 07:12 Oxygen Flow Rate 0 10/19/19 07:12
[2019-10-19] MEDS: Normal Saline 1,000 ML 1000 ML IV ×2 (07:45→10:08)
[2019-10-19] MEDS: LORazepam 2 MG/ML VIAL 0.5 MG IVP ×3 (08:00→22:18)
[2019-10-19 08:05] LABS: Lactate 1.6 mmol/L (0.6-1.4)
[2019-10-19 08:10] LABS: Abs Immature Grans 0.09 k/cumm (0.0-0.09); Absolute Basophil Count 0.02 k/cumm (0.0-0.2); Absolute Monocyte Count 0.97 k/cumm (0.11-0.7); Basophils % 0.2; HCT 39.5 % (36.0-46.0); HGB 13.2 g/dL (12.0-15.5); Immature Grans % 0.8; Lymphocytes % 11.3; Mean Corp. HGB Concentration 33.4 g/dL (32.0-36.0); Mean Corpuscular Hemoglobin 28.1 pg (27.0-33.0); Mean Platelet Volume 11.7 fL (8.0-11.0); Monocytes % 8.3; Neutrophils % 79.4; Platelet Count 211 x1000/uL (130-400); RBC Distribution Width 14.5 % (11.7-14.6); White Blood Cell Count 11.64 k/cumm (4.4-10.8)
[2019-10-19 08:14] LABS: Bilirubin Small (Negative); Blood Small (Negative); Clarity Clear (Clear); Glucose Negative (Negative); Ketones Trace mg/dL (Negative); Leukocyte Esterase Negative (Negative); Nitrite Negative (Negative); Specific Gravity >= 1.030 (1.005-1.025); Urobilinogen 0.2 EU/dL (Up TO 0.2); pH 5.5 (5-8)
[2019-10-19 08:14] LABS: Absolute Lymphocyte Count 1.32 k/cumm (1.2-3.4); Absolute Neutrophil Count 9.24 k/cumm (1.2-6.7)
[2019-10-19 08:25] LABS: Bacteria Few HPF (Negative); Crystals Few Amorphous HPF (Negative); Epithelial Cells Few HPF (Negative); RBC 0-2 HPF (0-2)
[2019-10-19 08:26] LABS: C & S Indicated? No; Casts 0-2 Coarse Granular LPF (Negative); Mucus Negative (Negative)
[2019-10-19 08:34] LABS: ALT 118 U/L (14-59); AST 377 U/L (15-37); Alkaline Phosphatase 351 U/L (46-116); Anion Gap 7.6 mmol/L (3-11); BUN 28 mg/dL (7-18); Bilirubin, Total 1.4 mg/dL (0.2-1.0); CO2 28.4 mmol/L (21.0-32.0); CREATININE 1.09 mg/dL (0.55-1.02); Chloride 94 mmol/L (98-107); Estimated GFR 49.77 (mL/min/1.73m2); Glucose 108 mg/dL (74-106); Magnesium 1.5 mg/dL (1.8-2.4); Potassium 3.9 mmol/L (3.5-5.1); Sodium 130 mmol/L (136-145); TSH (W/Ref FT4) 2.23 uIU/mL (0.36-3.74); Total Protein 8.2 g/dL (6.4-8.2); Troponin I < 0.05 ng/Ml (<0.06)
--- NOTE | 2019-10-19 08:51 | PDOC.ERCMPRO ---
Care Management Progress Note MEENA rec'd page from the ER reporting Aury and her were requesting hospice support for discharge. Trice of the ED reported that Dr. Johnson was paged and was on today for Hospice Admissions. MEENA spoke to Jayden of [facility] who reported Aury had active orders for Hospice from her PCP on 10/06/19 and was unsure why she was not already on service. MEENA connected Jayden with Dr. Wilson in the ER for further case review.
[2019-10-19] MEDS: LORazepam 2 MG/ML VIAL ×2 (09:15→09:20)
[2019-10-19 09:27] LABS: *AMPHETAMINES SCREEN URINE Negative (Negative); *BARBITURATES SCREEN URINE Negative (Negative); *BENZODIAZEPINES SCREEN URINE Negative (Negative); Cannabinoids THC POSITIVE (Negative); Cocaine Screen,Urine Negative (Negative); METHADONE URINE SCREEN Negative (Negative); OPIATES URINE SCREEN Negative (Negative)
[2019-10-19 09:29] LABS: Tricyclic Antidepressants Negative (Negative)
--- NOTE | 2019-10-19 09:35 | DI.CT_ITS ---
EXAM: CT HEAD WO CLINICAL HISTORY: AMS TECHNIQUE: The exam was performed according to the usual protocol without contrast. COMPARISON: No exams were available for comparison FINDINGS: The ventricles and sulci are consistent with the patient's age. There are areas of decreased attenua tion in the white matter consistent with small vessel ischemic disease. No acute intracranial hemorr buzz, midline shift or mass effect is present. The ventricles are intact. The basilar cisterns are patent. Visualized paranasal sinuses are clear. The mastoid air cells are well pneumatized. The ca lvarium is intact. IMPRESSION: No acute intracranial process. These findings were discussed with the emergency department on the date of the examination.
--- NOTE | 2019-10-19 09:40 | DI.RAD_ITS ---
EXAM: XR CHEST 2V PA LATERAL INDICATION: AMS. COMPARISON: CHEST 2 VIEWS PA,LAT from 05/19/2018 TECHNIQUE: 2D digital imaging was performed. FINDINGS: The study is suboptimal due to patient positioning and external artifact. The heart size and pulmonar y vasculature are within normal limits. There is a question of an infiltrate seen in the lung bases bilaterally. No effusion is seen. No definite pneumothorax is appreciated. Degenerative changes ar e seen in the spine. IMPRESSION: 1. Suboptimal examination due to patient positioning. A repeat PA and lateral view of the chest shou ld be considered for further evaluation. 2. Question of bilateral basilar infiltrate. This may represent atelectasis or pneumonia. Please co rrelate clinically.
[2019-10-19 09:41] LABS: Acetaminophen < 2 ug/mL (10-30)
[2019-10-19] MEDS: Calcitonin-Salmon 400 UNITS/2 ML VIAL 181 UNITS IM (09:48)
[2019-10-19] MEDS: MAGNESIUM SULFATE 2 GM/50 ML BAG IVPB (09:48)
[2019-10-19 11:11] LABS: Troponin I 0.05 ng/Ml (<0.06)
--- NOTE | 2019-10-19 11:33 | DI.US_ITS ---
EXAM: US ABDOMEN CLINICAL HISTORY: AMS, elevated liver enzymes TECHNIQUE: Ultrasound performed using standard protocol. FINDINGS: The aorta is unremarkable. The inferior vena cava is unremarkable. The liver is enlarged measuring 19.6 centimeters. It is heterogeneous. No discrete mass is seen. T here is a lobulated contour of the liver suggesting hepatic cirrhosis. There is hepatopetal flow through the portal vein. The gallbladder is unremarkable. There is a negative sonographic Mae sign. The common duct is wi thin normal limits at 3 millimeters. The spleen, pancreas and kidneys are unremarkable. No free fluid is seen in the abdomen. IMPRESSION: Enlarged heterogeneous liver with findings suggestive of hepatic cirrhosis. No evidence of a hepatic mass sonographically.
[2019-10-19 12:31] LABS: Lactate 1.4 mmol/L (0.6-1.4)
[2019-10-19 12:50] LABS: ALT 101 U/L (14-59); AST 322 U/L (15-37); Albumin 3.4 g/dL (3.4-5.0); Alkaline Phosphatase 291 U/L (46-116); Anion Gap 10.9 mmol/L (3-11); BUN 25 mg/dL (7-18); Bilirubin, Total 1.2 mg/dL (0.2-1.0); CO2 27.1 mmol/L (21.0-32.0); CREATININE 1.03 mg/dL (0.55-1.02); Chloride 103 mmol/L (98-107); Estimated GFR 53.13 (mL/min/1.73m2); Glucose 100 mg/dL (74-106); Sodium 141 mmol/L (136-145); Total Protein 6.9 g/dL (6.4-8.2)
[2019-10-19 13:14] LABS: Procalcitonin 12.2 ng/mL
--- NOTE | 2019-10-19 13:26 | DI.CT_ITS ---
EXAM: CT CHEST/ABD/PEL W CLINICAL HISTORY: AMS, elevated LFTs, poor quality CXR TECHNIQUE: Imaging Protocol: Axial computed tomography images with coronal and sagittal reformatted images were created and reviewed CONTRAST MATERIAL: Intravenous: Omnipaque 350 Contrast volume:100 mL contrast route:IV - Oral: No FINDINGS: CHEST: Tracheobronchial tree: Patent where visualized. Mediastinum and Jacqueline: There are enlarged mediastinal lymph nodes. The largest is in the subcarinal re gion and measures 3.6 x 3.1 centimeters. Right hilar adenopathy is present. Pulmonary parenchyma: There is a 2.3 x 2 centimeter soft tissue mass in the right lower lobe. Finding s are suspicious for primary lung cancer. Dependent atelectatic changes are seen in the lungs. Parase ptal emphysematous changes are seen in the lungs. No focal consolidating infiltrates are present. Pleura: No effusion or pneumothorax. Lymph nodes: Mediastinal and right hilar adenopathy as discussed above Aorta: Atherosclerosis. Heart: No cardiomegaly or pericardial effusion. Coronary artery calcifications are present. Bones: Lucencies are seen in the bones suspicious for metastatic disease. There is cortical disruptio n seen at the anterior aspect of the T12 vertebral body. ABDOMEN: Liver: There are innumerable hypodense masses scattered throughout the liver. Portal, superior mesen teric and splenic veins are patent. Hepatomegaly. Gallbladder and biliary tract: No radiodense calculus or dilation. Pancreas: Normal density, no abnormal calcifications or inflammatory process. Spleen: Normal. Kidneys: Normal size, contour and axis. No radiodense stones or obstructive uropathy. No masses seen. Adrenal glands: There nodularity of the left adrenal gland. The right adrenal gland is unremarkable. Aorta: Atherosclerosis. No aneurysmal dilatation. Lymph nodes: Within normal limits. PELVIS: Bladder: Symmetric distention, no gross wall thickening. Bowel: There is diverticulosis of the colon but no evidence of acute diverticulitis. Bowel shows no e vidence of obstruction or inflammation. There is no evidence of an acute appendicitis. A normal appen nieves is seen in the right lower quadrant. Peritoneal cavity: There is a small amount of pelvic ascites. No pneumoperitoneum is present. Bones: Degenerative changes are seen in the spine. There are lucencies seen in the bones suspicious f or metastatic disease. Reproductive organs: Within normal limits as visualized. IMPRESSION: 1. Multiple hepatic masses suspicious for metastatic disease. 2. Bones suspicious for metastatic disease. 3. Small amount of pelvic ascites. 4. 2.3 x 2 centimeter soft tissue mass in the right lower lobe suspicious for primary pulmonary carci noma. 5. Thoracic adenopathy. The findings were discussed with Dr. Wilson of the Emergency Department on the date of the examinatio n. DATA REPOSITORY: All CT scans at this facility are submitted to the National Radiology Data Registry (NRDR) Dose Index Registry (DIR) with the [employer] (A[employer]). RADIATION OPTIMIZATION: All CT scans at this facility use at least one of these dose optimization te chniques: automated exposure control; mA and/or kV adjustment per patient size (includes targeted exa ms where dose is matched to clinical indication); or iterative reconstruction.
[2019-10-19] MEDS: Haloperidol 5 MG/ML VIAL 2 MG IM (13:38)
[2019-10-19 13:40] LABS: Ammonia 13 umol/L (11-32)
[2019-10-19] MEDS: Omnipaque 350 MG/ML 100 ML BTL IJ (13:42)
[2019-10-19] MEDS: Normal Saline - Diluent 50 ML VIAL IV (13:48)
[2019-10-19] MEDS: Normal Saline 1,000 ML 125 ML IV ×2 (14:10→22:19)
[2019-10-19] MEDS: CEFEPIME 2 GM in Normal Saline 100 ML IVPB (14:18)
--- NOTE | 2019-10-19 16:45 | W.PM.HP.N ---
Date of service: 10/19/19 Time of Service: 16:45 Assessment and Plan Assessment and plan (1) Metastatic lung cancer (metastasis from lung to other site): Status: Acute Assessment and plan: New diagnosis. I suspect that, as she has had progressively worsening mental status, she might in fact also have brain metastases, but certainly hypercalcemia could be contributing to her confusion. At this time, the is interested in her dying comfortably at home. He is interested in getting her home for [facility] and in getting more support at home. Hospice consult has been placed and is expected to happen tomorrow morning. (2) Encephalopathy acute: Status: Acute Assessment and plan: As above - could be due to hypercalcemia, possible brain metastases, or delirium on top of her dementia. At this time, we will not be pursuing further workup of this, but will hydrate her, per directions of her . Will monitor mental status. (3) Failure to thrive: Status: Acute Assessment and plan: I think Ms Alva is dying. Hospice is consulted. (4) Dehydration: Status: Acute Assessment and plan: IVF, per (5) Hypercalcemia: Status: Acute Assessment and plan: S/p calcitonin in ER. On IVF - continue. Will not do further monitoring of labs, per his wishes. (6) DVT prophylaxis: Status: Acute Assessment and plan: Will not be administered - the 's goals are for patient's comfort. (7) Discharge planning issues: Status: Acute Assessment and plan: DNR/DNI Hospice is consulted. History of Present Illness History of Present Illness Chief Complaint: I thought she was dying Narrative: Ms Alva is a 69 year old female with PMHx of dementia, aortic regurgitation, fibromyalgia, canabis abuse, who was brought to [facility] ED today by ambulance for several days of progressively declining mental status and no PO intake. Her was worried that she was dying. She saw her PCP 2 weeks ago, at which point she was still verbal, though somewhat distracted. The patient was found to be extremely dehydrated, restless, but nonverbal and not following commands in the ED. She keeps her eyes closed. Her workup revealed calcium of 14, elevated liver function tests, and her imaging showed multiple hepatic masses suspicious for metastatic disease as well as presumed bone metastases, a RLL mass suspicious for primary pulmonary carcinoma and thoracic adenopathy. The patient's was notified of the fact that the patient likely has metastatic cancer by the ER provider. He is interested in her going home to , but cannot provide the necessary care for her without assistance of nursing/hospice, with whom he is interested in meeting. He does not want her to be rescucitated or intubated and wants us to primary focus on making her comfortable. He is not interested in any more blood work. He is interested in hydrating her overnight and seeing if she will get a little bit better before taking her home. He wants her home for [employer]. Her hospice consult is expected to happen tomorrow. Review of Systems Unobtainable due to mental condition [facility] Medical History Abnormal liver function test Adenomatous colon polyp Degenerative joint disease Depression with anxiety Elevated blood pressure reading without diagnosis of hypertension Epicondylitis elbow, medial Fibromyalgia Gastritis History of alcohol abuse Quit February 2017 Hx of rheumatic fever Hx of skin cancer, basal cell Hyperlipidemia Insomnia Itch of skin Mild cognitive impairment (Acute) Murmur, cardiac Nightmares Osteopenia Reflux esophagitis Situational stress Spastic colon Tinea unguium Social History Smoking/Tobacco Use Status: Current every day Tobacco Type: cigarettes Alcohol Intake: former Year quit: 2016 Drug use: Daily Substance use type: marijuana Details: Hx of LSD and mushroom use Household members: significant other Meds Home Medications and Allergies Home Medications Medication Instructions Recorded Confirmed Type cholecalciferol (vitamin D3) 25 1,000 unit PO DAILY 04/20/19 10/19/19 History mcg (1,000 unit) capsule cyanocobalamin (vitamin B-12) 1,000 mcg PO DAILY 04/20/19 10/19/19 History 1,000 mcg capsule cyclobenzaprine 10 mg tablet 10 mg PO TID 04/20/19 10/19/19 History ranitidine HCl 300 mg capsule 300 mg PO BID cap 04/20/19 10/19/19 History tiotropium bromide 18 mcg capsule 1 cap IH DAILY 04/20/19 10/19/19 History with inhalation device sertraline 50 mg tablet 150 mg PO DAILY tab 09/22/19 10/19/19 History atorvastatin [Lipitor] 20 mg PO QPM 10/19/19 10/19/19 History memantine [Namenda] 5 mg PO QPM 10/19/19 10/19/19 History Allergies Allergy/AdvReac Type Severity Reaction Status Date / Time hydrochlorothiazide Allergy Intermediate swelling Unverified 10/19/19 09:20 Penicillins Allergy Mild rash Unverified 10/19/19 09:20 aspirin AdvReac Intermediate GI upset Unverified 10/19/19 09:20 codeine AdvReac Intermediate shakey and Unverified 10/19/19 09:20 jittery Caffiene AdvReac Intermediate GI Uncoded 10/19/19 09:20 Upset/pain Exam Narrative Exam Narrative: General: Cachectic frail female, restless, not following commands Neurological: Exam difficult due to patient not following commands; she is able to move all 4 extremities, PERRLA Psychiatric: restless; exam limited due to mental status Skin: mild jaundice; no bruising or rashes HEENT: Atraumatic, gnosticism wasting, keeps eyes closed, dry MM, no submandibular lymphadenopathy, no goiter or JVD Cardiovascular: RRR, + ARANZA Lungs: CTAB Gastrointestinal: abdomen soft, nondistended Genitourinary: deferred Extremities: no e/c/c BLE's Results Imaging Additional studies: CXR: 1. Suboptimal examination due to patient positioning. A repeat PA and lateral view of the chest should be considered for further evaluation. 2. Question of bilateral basilar infiltrate. This may represent atelectasis or pneumonia. Please correlate clinically. US abdomen; Enlarged heterogeneous liver with findings suggestive of hepatic cirrhosis. No evidence of a hepatic mass sonographically. CT chest/abdomen/pelvis: 1. Multiple hepatic masses suspicious for metastatic disease. 2. Bones suspicious for metastatic disease. 3. Small amount of pelvic ascites. 4. 2.3 x 2 centimeter soft tissue mass in the right lower lobe suspicious for primary pulmonary carcinoma. 5. Thoracic adenopathy. CT head w/o contrast: No acute intracranial process. Labs Result diagrams: 10/19/19 07:30 10/19/19 12:25 Labs: Laboratory Results - last 24 hr 10/19/19 10/19/19 10/19/19 07:30 07:30 07:30 WBC 11.64 H RBC 4.70 Hgb 13.2 Hct 39.5 MCV 84.0 MCH 28.1 MCHC 33.4 RDW 14.5 Plt Count 211 MPV 11.7 H Immature Gran % 0.8 Neutrophils % 79.4 Lymphocytes % 11.3 Monocytes % 8.3 Eosinophils % 0.0 Basophils % 0.2 Absolute Neutrophils 9.24 H Absolute Lymphocytes 1.32 Absolute Monocytes 0.97 H Absolute Eosinophils 0.00 Absolute Basophils 0.02 Sodium 130 L Potassium 3.9 Chloride 94 L Carbon Dioxide 28.4 Anion Gap 7.6 BUN 28 H Creatinine 1.09 H Estimated GFR/1.73 m2 49.77 Glucose 108 H Lactate 1.6 H Calcium 14.0 H* Magnesium 1.5 L Total Bilirubin 1.4 H AST 377 H ALT 118 H Alkaline Phosphatase 351 H Ammonia Troponin I < 0.05 Total Protein 8.2 Albumin 4.0 Procalcitonin TSH 2.23 Urine Color Urine Clarity Urine pH Ur Specific [place] Urine Protein Urine Ketones Urine Blood Urine Nitrite Urine Bilirubin Urine Urobilinogen Ur Leukocyte Esterase Urine RBC Urine WBC Ur Epithelial Cells Urine Crystals Urine Bacteria Urine Casts Urine Mucus Urine Other Ur Culture Indicated? Urine Glucose Urine Opiates Screen Urine Methadone Screen Acetaminophen Ur Barbiturates Screen Ur Tricyclics Screen Ur Amphetamines Screen U Benzodiazepines Scrn Urine Cocaine Screen Ur THC Screen 10/19/19 10/19/19 10/19/19 07:30 08:06 08:06 WBC RBC Hgb Hct MCV MCH MCHC RDW Plt Count MPV Immature Gran % Neutrophils % Lymphocytes % Monocytes % Eosinophils % Basophils % Absolute Neutrophils Absolute Lymphocytes Absolute Monocytes Absolute Eosinophils Absolute Basophils Sodium Potassium Chloride Carbon Dioxide Anion Gap BUN Creatinine Estimated GFR/1.73 m2 Glucose Lactate Calcium Magnesium Total Bilirubin AST ALT Alkaline Phosphatase Ammonia Troponin I Total Protein Albumin Procalcitonin TSH Urine Color Yellow Urine Clarity Clear Urine pH 5.5 Ur Specific [place] >= 1.030 H Urine Protein 100 H Urine Ketones Trace H Urine Blood Small H Urine Nitrite Negative Urine Bilirubin Small H Urine Urobilinogen 0.2 Ur Leukocyte Esterase Negative Urine RBC 0-2 Urine WBC 3-5 Ur Epithelial Cells Few Urine Crystals Few amorphous Urine Bacteria Few Urine Casts 0-2 coarse granular Urine Mucus Negative Urine Other Ur Culture Indicated? No Urine Glucose Negative Urine Opiates Screen Negative Urine Methadone Screen Negative Acetaminophen < 2 L Ur Barbiturates Screen Negative Ur Tricyclics Screen Negative Ur Amphetamines Screen Negative U Benzodiazepines Scrn Negative Urine Cocaine Screen Negative Ur THC Screen Positive A 10/19/19 10/19/19 10/19/19 10:53 12: 12:25 WBC RBC Hgb Hct MCV MCH MCHC RDW Plt Count MPV Immature Gran % Neutrophils % Lymphocytes % Monocytes % Eosinophils % Basophils % Absolute Neutrophils Absolute Lymphocytes Absolute Monocytes Absolute Eosinophils Absolute Basophils Sodium 141 D Potassium 4.0 Chloride 103 Carbon Dioxide 27.1 Anion Gap 10.9 BUN 25 H Creatinine 1.03 H Estimated GFR/1.73 m2 53.13 Glucose 100 Lactate 1.4 Calcium 12.0 H* Magnesium Total Bilirubin 1.2 H AST 322 H ALT 101 H Alkaline Phosphatase 291 H Ammonia Troponin I 0.05 Total Protein 6.9 Albumin 3.4 Procalcitonin 12.2 TSH Urine Color Urine Clarity Urine pH Ur Specific [place] Urine Protein Urine Ketones Urine Blood Urine Nitrite Urine Bilirubin Urine Urobilinogen Ur Leukocyte Esterase Urine RBC Urine WBC Ur Epithelial Cells Urine Crystals Urine Bacteria Urine Casts Urine Mucus Urine Other Ur Culture Indicated? Urine Glucose Urine Opiates Screen Urine Methadone Screen Acetaminophen Ur Barbiturates Screen Ur Tricyclics Screen Ur Amphetamines Screen U Benzodiazepines Scrn Urine Cocaine Screen Ur THC Screen 10/19/19 13:16 WBC RBC Hgb Hct MCV MCH MCHC RDW Plt Count MPV Immature Gran % Neutrophils % Lymphocytes % Monocytes % Eosinophils % Basophils % Absolute Neutrophils Absolute Lymphocytes Absolute Monocytes Absolute Eosinophils Absolute Basophils Sodium Potassium Chloride Carbon Dioxide Anion Gap BUN Creatinine Estimated GFR/1.73 m2 Glucose Lactate Calcium Magnesium Total Bilirubin AST ALT Alkaline Phosphatase Ammonia 13 Troponin I Total Protein Albumin Procalcitonin TSH Urine Color Urine Clarity Urine pH Ur Specific [place] Urine Protein Urine Ketones Urine Blood Urine Nitrite Urine Bilirubin Urine Urobilinogen Ur Leukocyte Esterase Urine RBC Urine WBC Ur Epithelial Cells Urine Crystals Urine Bacteria Urine Casts Urine Mucus Urine Other Ur Culture Indicated? Urine Glucose Urine Opiates Screen Urine Methadone Screen Acetaminophen Ur Barbiturates Screen Ur Tricyclics Screen Ur Amphetamines Screen U Benzodiazepines Scrn Urine Cocaine Screen Ur THC Screen Last Vital Signs Temp 37.6 C H 10/19/19 11:07 Pulse 99 H 10/19/19 16:00 Resp 21 10/19/19 16:10 BP 175/59 H 10/19/19 16:00 Pulse Ox 95 10/19/19 16:20
[2019-10-19] MEDS: MORPHine 2 MG/ML SYR 4 MG IVP (20:06)
[2019-10-19] MEDS: Normal Saline Flush 10 ML SYR IVP ×2 (20:06→22:19)
--- NOTE | 2019-10-19 20:52 | PCNE_ITS ---
Date of service: 10/19/19 Time of Service: 18:52 History of Present Illness History of Present Illness Chief Complaint: metastatic lung cancer Narrative: Danita was nonresponsive when I went in to see her. Most of the history comes from her chart, speaking with her Myra, and also spending time in speaking with Jojo Burrell her PCP. Jojo and I went in to see Danita together. Per notes Danita was doing fairly well 2 weeks ago when she went to see Jojo. She was interactive and although has some cognitive difficulties was not an extremis. She stopped eating and drinking and her became concerned that she was dying. At that time they came to the emergency room where Danita was found to be extremely dehydrated. CT scan showed probable metastatic lung cancer with involvement of liver and bones. did not want aggressive care but rather care towards her comfort. He was not interested in more lab tests, biopsies etc. it was noted that her calcium was quite high and has started to come down. Her hypercalcemia was thought to be some of the reason her mental status was off Consults Consult date: 10/19/19 Requesting physician: Michell Wilkes Assessment and Plan Assessment and plan (1) Hypercalcemia: Status: Acute (2) Failure to thrive: Status: Acute (3) Metastatic lung cancer (metastasis from lung to other site): Status: Acute Assessment and plan: Patient appears to be very agitated?I asked the nurse to administer some of the previously ordered Ativan. Nursing was quite concerned that she was in pain. I did increase the morphine from 1 mg/h to 4 mg/h. I did inform the night hospitalist, Dr. Perez, of the order change. I did speak with Myra her . Initially he wanted her to come home immediately and be comfortable and . On the phone tonight he states that he has things that need to be done in the house before she can come home and that it will take him a week or more to accomplish this. He was hoping she could go to a fdc until then. Her is really uncertain about what kind of insurance they have. He knows it is for people that are older and his is older than he. Per Jojo Burrell, MULTIPLE SPINDLE SCREW MACHINE OPERATOR it is doubtful that her would be able to take care of her during the actively dying process due to his cognitive limitations with his TBI. There is question as to whether or not he could have help in the house, but the expectation is it would be full-time help. I did explain to Danita's that hospice does not provide full-time care. I will talk with care management in the morning regarding insurances and resources. As much as the would like to take her home I do not know if this is a realistic plan. I think he has had some time to think about it since the admission today and realizes that his home is not yet ready to take Danita back to. I have reviewed Danita's advanced directive. She does appoint Myra as her D POA. I do think that he is making reasonable choices that Danita would want could she make her own decisions especially given the new information regarding metastatic cancer and present level of functioning I understand that there is going to be a hospice consult consult in the morning. The biggest leonor is not what her DPOAE wants, but where Danita will spend her last days, and how this will get paid for. I think Jojo Burrell M[employer]IP[employer] SPINDLE SCREW MACHINE OPERATOR for her input which was invaluable. Review of Systems Narrative: Patient is unable to give me a review of systems [facility] [place] Medical History Abnormal liver function test Adenomatous colon polyp Degenerative joint disease Depression with anxiety Elevated blood pressure reading without diagnosis of hypertension Epicondylitis elbow, medial Fibromyalgia Gastritis History of alcohol abuse Quit February 2017 Hx of rheumatic fever Hx of skin cancer, basal cell Hyperlipidemia Insomnia Itch of skin Mild cognitive impairment (Acute) Murmur, cardiac Nightmares Osteopenia Reflux esophagitis Situational stress Spastic colon Tinea unguium Social History Smoking/Tobacco Use Status: Current every day Tobacco Type: cigarettes Alcohol Intake: former Year quit: 2016 Drug use: Daily Substance use type: marijuana Details: Hx of LSD and mushroom use Household members: significant other Exam Narrative Exam Narrative: Danita is lying in bed. She seems very agitated pulling at her nightgown, IV lines etc. she does not respond to Jojo home she knows. She did not respond to voices, looking eyes, or even sharp stimuli. Laboratory Tests 10/19/19 10/19/19 10/19/19 07:30 12:25 13:16 BUN 25 H Creatinine 1.03 H Calcium 12.0 H* AST 322 H ALT 101 H Alkaline Phosphatase 291 H Ammonia 13 Total Protein 6.9 Albumin 3.4 TSH 2.23 FINDINGS: CHEST: Tracheobronchial tree: Patent where visualized. Mediastinum and Jacqueline: There are enlarged mediastinal lymph nodes. The largest is in the subcarinal region and measures 3.6 x 3.1 centimeters. Right hilar karley nopathy is present. Pulmonary parenchyma: There is a 2.3 x 2 centimeter soft tissue mass in the righ t lower lobe. Findings are suspicious for primary lung cancer. Dependent atelectatic changes are seen in the lungs. Paraseptal emphysematous changes are seen in the lungs. No focal consolidating infiltrates are present. Pleura: No effusion or pneumothorax. Lymph nodes: Mediastinal and right hilar adenopathy as discussed above Aorta: Atherosclerosis. Heart: No cardiomegaly or pericardial effusion. Coronary artery calcifications are present. Bones: Lucencies are seen in the bones suspicious for metastatic disease. There is cortical disruption seen at the anterior aspect of the T12 vertebral body. ABDOMEN: Liver: There are innumerable hypodense masses scattered throughout the liver. Portal, superior mesenteric and splenic veins are patent. Hepatomegaly. Gallbladder and biliary tract: No radiodense calculus or dilation. Pancreas: Normal density, no abnormal calcifications or inflammatory process. Spleen: Normal. Kidneys: Normal size, contour and axis. No radiodense stones or obstructive uropathy. No masses seen. Adrenal glands: There nodularity of the left adrenal gland. The right adrenal gland is unremarkable. Aorta: Atherosclerosis. No aneurysmal dilatation. Lymph nodes: Within normal limits. PELVIS: Bladder: Symmetric distention, no gross wall thickening. Bowel: There is diverticulosis of the colon but no evidence of acute diverticulitis. Bowel shows no evidence of obstruction or inflammation. There is no evidence of an acute appendicitis. A normal appendix is seen in the right lower quadrant. Peritoneal cavity: There is a small amount of pelvic ascites. No pneumoperi toneum is present. Bones: Degenerative changes are seen in the spine. There are lucencies seen in the bones suspicious for metastatic disease. Reproductive organs: Within normal limits as visualized. IMPRESSION: 1. Multiple hepatic masses suspicious for metastatic disease. 2. Bones suspicious for metastatic disease. 3. Small amount of pelvic ascites. 4. 2.3 x 2 centimeter soft tissue mass in the right lower lobe suspicious for primary pulmonary carcinoma. 5. Thoracic adenopathy. Results Last Vital Signs Temp 98.2 F 10/19/19 17:21 Pulse 95 H 10/19/19 17:21 Resp 18 10/19/19 17:21 BP 167/64 H 10/19/19 17:21 Pulse Ox 97 10/19/19 17:21 Labs Result diagrams: 10/19/19 07:30 10/19/19 12:25 Labs: Laboratory Results - last 24 hr 10/19/19 10/19/19 10/19/19 07:30 07:30 07:30 WBC 11.64 H RBC 4.70 Hgb 13.2 Hct 39.5 MCV 84.0 MCH 28.1 MCHC 33.4 RDW 14.5 Plt Count 211 MPV 11.7 H Immature Gran % 0.8 Neutrophils % 79.4 Lymphocytes % 11.3 Monocytes % 8.3 Eosinophils % 0.0 Basophils % 0.2 Absolute Neutrophils 9.24 H Absolute Lymphocytes 1.32 Absolute Monocytes 0.97 H Absolute Eosinophils 0.00 Absolute Basophils 0.02 Sodium 130 L Potassium 3.9 Chloride 94 L Carbon Dioxide 28.4 Anion Gap 7.6 BUN 28 H Creatinine 1.09 H Estimated GFR/1.73 m2 49.77 Glucose 108 H Lactate 1.6 H Calcium 14.0 H* Magnesium 1.5 L Total Bilirubin 1.4 H AST 377 H ALT 118 H Alkaline Phosphatase 351 H Ammonia Troponin I < 0.05 Total Protein 8.2 Albumin 4.0 Procalcitonin TSH 2.23 Urine Color Urine Clarity Urine pH Ur Specific [place] Urine Protein Urine Ketones Urine Blood Urine Nitrite Urine Bilirubin Urine Urobilinogen Ur Leukocyte Esterase Urine RBC Urine WBC Ur Epithelial Cells Urine Crystals Urine Bacteria Urine Casts Urine Mucus Urine Other Ur Culture Indicated? Urine Glucose Urine Opiates Screen Urine Methadone Screen Acetaminophen Ur Barbiturates Screen Ur Tricyclics Screen Ur Amphetamines Screen U Benzodiazepines Scrn Urine Cocaine Screen Ur THC Screen 10/19/19 10/19/19 10/19/19 07:30 08:06 08:06 WBC RBC Hgb Hct MCV MCH MCHC RDW Plt Count MPV Immature Gran % Neutrophils % Lymphocytes % Monocytes % Eosinophils % Basophils % Absolute Neutrophils Absolute Lymphocytes Absolute Monocytes Absolute Eosinophils Absolute Basophils Sodium Potassium Chloride Carbon Dioxide Anion Gap BUN Creatinine Estimated GFR/1.73 m2 Glucose Lactate Calcium Magnesium Total Bilirubin AST ALT Alkaline Phosphatase Ammonia Troponin I Total Protein Albumin Procalcitonin TSH Urine Color Yellow Urine Clarity Clear Urine pH 5.5 Ur Specific [place] >= 1.030 H Urine Protein 100 H Urine Ketones Trace H Urine Blood Small H Urine Nitrite Negative Urine Bilirubin Small H Urine Urobilinogen 0.2 Ur Leukocyte Esterase Negative Urine RBC 0-2 Urine WBC 3-5 Ur Epithelial Cells Few Urine Crystals Few amorphous Urine Bacteria Few Urine Casts 0-2 coarse granular Urine Mucus Negative Urine Other Ur Culture Indicated? No Urine Glucose Negative Urine Opiates Screen Negative Urine Methadone Screen Negative Acetaminophen < 2 L Ur Barbiturates Screen Negative Ur Tricyclics Screen Negative Ur Amphetamines Screen Negative U Benzodiazepines Scrn Negative Urine Cocaine Screen Negative Ur THC Screen Positive A 10/19/19 10/19/19 10/19/19 10:53 12:23 12:25 WBC RBC Hgb Hct MCV MCH MCHC RDW Plt Count MPV Immature Gran % Neutrophils % Lymphocytes % Monocytes % Eosinophils % Basophils % Absolute Neutrophils Absolute Lymphocytes Absolute Monocytes Absolute Eosinophils Absolute Basophils Sodium 141 D Potassium 4.0 Chloride 103 Carbon Dioxide 27.1 Anion Gap 10.9 BUN 25 H Creatinine 1.03 H Estimated GFR/1.73 m2 53.13 Glucose 100 Lactate 1.4 Calcium 12.0 H* Magnesium Total Bilirubin 1.2 H AST 322 H ALT 101 H Alkaline Phosphatase 291 H Ammonia Troponin I 0.05 Total Protein 6.9 Albumin 3.4 Procalcitonin 12.2 TSH Urine Color Urine Clarity Urine pH Ur Specific [place] Urine Protein Urine Ketones Urine Blood Urine Nitrite Urine Bilirubin Urine Urobilinogen Ur Leukocyte Esterase Urine RBC Urine WBC Ur Epithelial Cells Urine Crystals Urine Bacteria Urine Casts Urine Mucus Urine Other Ur Culture Indicated? Urine Glucose Urine Opiates Screen Urine Methadone Screen Acetaminophen Ur Barbiturates Screen Ur Tricyclics Screen Ur Amphetamines Screen U Benzodiazepines Scrn Urine Cocaine Screen Ur THC Screen 10/19/19 13:16 WBC RBC Hgb Hct MCV MCH MCHC RDW Plt Count MPV Immature Gran % Neutrophils % Lymphocytes % Monocytes % Eosinophils % Basophils % Absolute Neutrophils Absolute Lymphocytes Absolute Monocytes Absolute Eosinophils Absolute Basophils Sodium Potassium Chloride Carbon Dioxide Anion Gap BUN Creatinine Estimated GFR/1.73 m2 Glucose Lactate Calcium Magnesium Total Bilirubin AST ALT Alkaline Phosphatase Ammonia 13 Troponin I Total Protein Albumin Procalcitonin TSH Urine Color Urine Clarity Urine pH Ur Specific [place] Urine Protein Urine Ketones Urine Blood Urine Nitrite Urine Bilirubin Urine Urobilinogen Ur Leukocyte Esterase Urine RBC Urine WBC Ur Epithelial Cells Urine Crystals Urine Bacteria Urine Casts Urine Mucus Urine Other Ur Culture Indicated? Urine Glucose Urine Opiates Screen Urine Methadone Screen Acetaminophen Ur Barbiturates Screen Ur Tricyclics Screen Ur Amphetamines Screen U Benzodiazepines Scrn Urine Cocaine Screen Ur THC Screen
[2019-10-20] MEDS: MORPHine 2 MG/ML SYR 4 MG IVP ×2 (03:45→09:55)
[2019-10-20] MEDS: LORazepam 2 MG/ML VIAL 0.5 MG IVP ×2 (03:45→10:22)
[2019-10-20] MEDS: Normal Saline 1,000 ML 125 ML IV (06:11)
[2019-10-20 07:10] VITALS: BP 164/68; PULSE 106; RESP 18; TEMP 37.3; O2SAT 93
--- NOTE | 2019-10-20 10:23 | W.NUTCONSULT ---
Date of service: 10/20/19 Time of Service: 10:23 Nutritional Consult ASSESSMENT: 69 year old female with metastatic lung cancer, possible brain mets with dehydration, failure to thrive and no po intake x several days prior to ER admit 10/19. BMI indicates underweight status putting Aury at risk for skin breakdown. Refusing meals, receiving IV fluids per request. Hospice consult pending. Nursing reports she is dying and family does not want aggressive nutrition intervention. Will be available prn. Time Spent in Nutritional Counseling and Treatment: 0 time spent face to face
--- NOTE | 2019-10-20 11:31 | PHARADMIT ---
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 Brain METS ??? ) Code Status DNR/DNI Current Weight Wgt-45.4 kg Renally Cleared and Narrow Therapeutic Index Meds CrCl~ 36.9 mL/min Meds-OK QTc Value / Action Taken QTc-437 NA BP Control, Fever BP- 164/68 Tmax-37.3C Electrolytes reviewed Na-141, K+4.0 Mag-1.5 DVT Prophylaxis NONE (?? brain mets) Opiate Usage / Scheduled Bowel Regimen Ordered Yes Yes Plt/SCr for Heparin / Enoxaparin Plts-211 SCr-103 INR for Warfarin na H/H stable, WBC/Bands H&H- 13.2/39.5 WBC-11.64 Antibiotic appropriateness Cefepime in ER) Cultures and Sensitivities Blood- No Growth 24hrs Surgical ABX d/c within 24 hr na DM control / Insulin Dosing BG- 100 Heart Failure (Check EF%) (RENAN's, B-Block, Diuretics) NONE IV to PO Switch No Home Meds Reviewed Yes Home Meds Not Ordered Lipitor, Vit-D, B-12, Flexeril, Namenda, Zantavc, Zoloft, Spiriva Comments
--- NOTE | 2019-10-20 12:32 | W.PM.PROGNOT ---
Date of Service Date of service: 10/20/19 Time of Service: 12:32 Assessment and Plan Assessment and plan (1) Metastatic lung cancer (metastasis from lung to other site): Status: Acute Assessment and plan: New diagnosis, with multiple hepatic masses noted as well as bone suspicious for metastatic disease and a 2.3 x 2 cm soft tissue mass in the right lower lobe suspicious for primary pulmonary carcinoma with thoracic adenopathy noted on CT scan. She is unresponsive and cachectic. Her /DPOA has decided on comfort measures only with plans to bring her home on hospice on 10/22/2019. She has been on IV morphine for pain. He is agreeable to transitioning to a subcutaneous morphine pump which has been ordered. Treat symptoms and maintain comfort measures only. (2) Comfort measures only status: Status: Acute Assessment and plan: As above. This case was discussed with Dr. Wilkes who is in agreement. Subjective Subjective Interval history since last seen: Aury Alva is unresponsive, her and DPOA, Myra is present as well as their friend, Yumi. Myra met with hospice and discussed taking her home on 10/22 on hospice. His concern is her comfort. He reports that she was restless and appeared uncomfortable earlier this morning, but he thinks she is comfortable now. He is open to trying a morphine infusion. He is in agreement with discontinuing the IV fluids. He states was unresponsive prior to coming into the hospital. Exam Narrative Exam Narrative: General: Thin, cachectic female, completely unresponsive, lying in bed on her left side. HEENT: Normocephalic, atraumatic, edentulous, mucous membranes slightly dry. Cardiovascular: Heart sounds regular, no murmur noted. Respiratory: Respirations appear even and unlabored, lung sounds clear bilaterally. GI: Abdomen soft, does not appear tender on palpation. Extremities: Thin, no clubbing, cyanosis or edema. Moving arms and legs freely. Left arm edematous. Objective Objective Clinical Data: Abnormal lab results 10/19/19 Range/Units 12:25 BUN 25 H (7-18) mg/dL Creatinine 1.03 H (0.55-1.02) mg/dL Calcium 12.0 H* (8.5-10.1) mg/dL Total Bilirubin 1.2 H (0.2-1.0) mg/dL AST 322 H (15-37) U/L ALT 101 H (14-59) U/L Alkaline Phosphatase 291 H (46-116) U/L Vital Signs Temperature 37.3 C 10/20/19 07:10 Temperature Source Tympanic 10/20/19 07:10 Pulse 106 H 10/20/19 07:10 Pulse Rhythm Regular 10/19/19 20:07 Pulse 96 H 10/19/19 16:20 Respiratory Rate 18 10/20/19 07:10 Respiratory Effort 10/20/19 10:45 Respiratory Depth Deep 10/20/19 10:45 Respiratory Pattern Normal 10/19/19 08:57 Blood Pressure 164/68 H 10/20/19 07:10 Blood Pressure Mean 88 10/19/19 16:00 Pulse Oximetry 93 L 10/20/19 07:10 Oxygen Delivery Method Room Air 10/20/19 07:10 Oxygen Flow Rate 0 10/20/19 07:10 Pain Level 0 10/20/19 07:10 Intake & Output 10/19/19 10/20/19 10/20/19 23:59 11:59 23:59 Intake Total 2150 / 3150 1003.333 / 1003.333 Output Total 800 / 800 Balance 2150 / 3150 203.333 / 203.333 Weight 45.4 kg Intake: IV 2150 / 3150 1003.333 / 1003.333 Output: Urine 800 / 800 Other: Urine Color Yellow Dark Veronica Urine Appearance Clear Clear Urine Odor None Comment pt refused Voiding Methods Diaper Incontinent Laboratory Results WBC 11.64 k/cumm (4.4-10.8) H 10/19/19 07:30 RBC 4.70 m/cumm (4.00-5.20) 10/19/19 07:30 Hgb 13.2 g/dL (12.0-15.5) 10/19/19 07:30 Hct 39.5 % (36.0-46.0) 10/19/19 07:30 MCV 84.0 fL (80-95) 10/19/19 07:30 MCH 28.1 pg (27.0-33.0) 10/19/19 07:30 MCHC 33.4 g/dL (32.0-36.0) 10/19/19 07:30 RDW 14.5 % (11.7-14.6) 10/19/19 07:30 Plt Count 211 x1000/uL (130-400) 10/19/19 07:30 MPV 11.7 fL (8.0-11.0) H 10/19/19 07:30 Immature Gran % 0.8 10/19/19 07:30 Neutrophils % 79.4 10/19/19 07:30 Lymphocytes % 11.3 10/19/19 07:30 Monocytes % 8.3 10/19/19 07:30 Eosinophils % 0.0 10/19/19 07:30 Basophils % 0.2 10/19/19 07:30 Absolute Neutrophils 9.24 k/cumm (1.2-6.7) H 10/19/19 07:30 Absolute Lymphocytes 1.32 k/cumm (1.2-3.4) 10/19/19 07:30 Absolute Monocytes 0.97 k/cumm (0.11-0.7) H 10/19/19 07:30 Absolute Eosinophils 0.00 k/cumm (0.0-0.7) 10/19/19 07:30 Absolute Basophils 0.02 k/cumm (0.0-0.2) 10/19/19 07:30 Sodium 141 mmol/L (136-145) D 10/19/19 12:25 Potassium 4.0 mmol/L (3.5-5.1) 10/19/19 12:25 Chloride 103 mmol/L (98-107) 10/19/19 12:25 Carbon Dioxide 27.1 mmol/L (21.0-32.0) 10/19/19 12:25 Anion Gap 10.9 mmol/L (3-11) 10/19/19 12:25 BUN 25 mg/dL (7-18) H 10/19/19 12:25 Creatinine 1.03 mg/dL (0.55-1.02) H 10/19/19 12:25 Estimated GFR/1.73 m2 53.13 (mL/min/1.73m2) 10/19/19 12:25 Glucose 100 mg/dL (74-106) 10/19/19 12:25 Lactate 1.4 mmol/L (0.6-1.4) 10/19/19 12:23 Calcium 12.0 mg/dL (8.5-10.1) H* 10/19/19 12:25 Magnesium 1.5 mg/dL (1.8-2.4) L 10/19/19 07:30 Total Bilirubin 1.2 mg/dL (0.2-1.0) H 10/19/19 12:25 AST 322 U/L (15-37) H 10/19/19 12:25 ALT 101 U/L (14-59) H 10/19/19 12:25 Alkaline Phosphatase 291 U/L (46-116) H 10/19/19 12:25 Ammonia 13 umol/L (11-32) 10/19/19 13:16 Troponin I 0.05 ng/Ml (<0.06) 10/19/19 10:53 Total Protein 6.9 g/dL (6.4-8.2) 10/19/19 12:25 Albumin 3.4 g/dL (3.4-5.0) 10/19/19 12:25 Procalcitonin 12.2 ng/mL 10/19/19 12:23 TSH 2.23 uIU/mL (0.36-3.74) 10/19/19 07:30 Urine Color Yellow (Yellow) 10/19/19 08:06 Urine Clarity Clear (Clear) 10/19/19 08:06 Urine pH 5.5 (5-8) 10/19/19 08:06 Ur Specific [place] >= 1.030 (1.005-1.025) H 10/19/19 08:06 Urine Protein 100 mg/dL (Negative) H 10/19/19 08:06 Urine Ketones Trace mg/dL (Negative) H 10/19/19 08:06 Urine Blood Small (Negative) H 10/19/19 08:06 Urine Nitrite Negative (Negative) 10/19/19 08:06 Urine Bilirubin Small (Negative) H 10/19/19 08:06 Urine Urobilinogen 0.2 EU/dL (Up TO 0.2) 10/19/19 08:06 Ur Leukocyte Esterase Negative (Negative) 10/19/19 08:06 Urine RBC 0-2 HPF (0-2) 10/19/19 08:06 Urine WBC 3-5 HPF (0-5) 10/19/19 08:06 Ur Epithelial Cells Few HPF (Negative) 10/19/19 08:06 Urine Crystals Few amorphous HPF (Negative) 10/19/19 08:06 Urine Bacteria Few HPF (Negative) 10/19/19 08:06 Urine Casts 0-2 coarse granular LPF (Negative) 10/19/19 08:06 Urine Mucus Negative (Negative) 10/19/19 08:06 Urine Other (Negative) 10/19/19 08:06 Ur Culture Indicated? No 10/19/19 08:06 Urine Glucose Negative mg/dL (Negative) 10/19/19 08:06 Urine Opiates Screen Negative (Negative) 10/19/19 08:06 Urine Methadone Screen Negative (Negative) 10/19/19 08:06 Acetaminophen < 2 ug/mL (10-30) L 10/19/19 07:30 Ur Barbiturates Screen Negative (Negative) 10/19/19 08:06 Ur Tricyclics Screen Negative (Negative) 10/19/19 08:06 Ur Amphetamines Screen Negative (Negative) 10/19/19 08:06 U Benzodiazepines Scrn Negative (Negative) 10/19/19 08:06 Urine Cocaine Screen Negative (Negative) 10/19/19 08:06 Ur THC Screen Positive (Negative) A 10/19/19 08:06
--- NOTE | 2019-10-20 12:56 | PCPN_ITS ---
Date of service: 10/20/19 Time of Service: 06:56 Assessment and Plan Assessment and plan (1) Hypercalcemia: Status: Acute (2) Metastatic lung cancer (metastasis from lung to other site): Status: Acute Assessment and plan: Danita appears to be dying. Her mate feels strongly that keeping her comfortable is in her best interest. She presently has IV fluids running. I would recommend that she be switched to comfort measures. Her will be in later this morning to verify this. She does have a hospice consult today. I think placement is going to be a big part of the issue as I am uncertain that the would be able to care for her at home without significant support. I did speak to hospitalist and she brought up a good point that Danita has been cared for by her for a long time and had no bedsores he brought her into the hospital appropriately etc. this will get sorted out over the the next few hours. Subjective Subjective Interval history since last seen: Staff reports that Danita was restless at different times during the night. She did receive some Ativan and morphine. She did require cadre for safety Exam Narrative Exam Narrative: Danita is lying in the bed. She did not respond to me. She did not respond to sternal pressure. She was breathing deeply and regularly. She is tachycardic. Objective Objective Clinical Data: Abnormal lab results 10/19/19 Range/Units 12:25 BUN 25 H (7-18) mg/dL Creatinine 1.03 H (0.55-1.02) mg/dL Calcium 12.0 H* (8.5-10.1) mg/dL Total Bilirubin 1.2 H (0.2-1.0) mg/dL AST 322 H (15-37) U/L ALT 101 H (14-59) U/L Alkaline Phosphatase 291 H (46-116) U/L Vital Signs Temperature 99.1 F 10/20/19 07:10 Temperature Source Tympanic 10/20/19 07:10 Pulse 106 H 10/20/19 07:10 Pulse Rhythm Regular 10/19/19 20:07 Pulse 96 H 10/19/19 16:20 Respiratory Rate 18 10/20/19 07:10 Respiratory Effort 10/20/19 10:45 Respiratory Depth Deep 10/20/19 10:45 Respiratory Pattern Normal 10/19/19 08:57 Blood Pressure 164/68 H 10/20/19 07:10 Blood Pressure Mean 88 10/19/19 16:00 Pulse Oximetry 93 L 10/20/19 07:10 Oxygen Delivery Method Room Air 10/20/19 07:10 Oxygen Flow Rate 0 10/20/19 07:10 Pain Level 0 10/20/19 07:10 Intake & Output 10/19/19 10/20/19 10/20/19 23:59 11:59 23:59 Intake Total 2150 / 3150 1003.333 / 1003.333 Output Total 800 / 800 Balance 2150 / 3150 203.333 / 203.333 Weight 100 lb 1.438 oz Intake: IV 2150 / 3150 1003.333 / 1003.333 Output: Urine 800 / 800 Other: Urine Color Yellow Dark Veronica Urine Appearance Clear Clear Urine Odor None Comment pt refused Voiding Methods Diaper Incontinent Laboratory Results WBC 11.64 k/cumm (4.4-10.8) H 10/19/19 07:30 RBC 4.70 m/cumm (4.00-5.20) 10/19/19 07:30 Hgb 13.2 g/dL (12.0-15.5) 10/19/19 07:30 Hct 39.5 % (36.0-46.0) 10/19/19 07:30 MCV 84.0 fL (80-95) 10/19/19 07:30 MCH 28.1 pg (27.0-33.0) 10/19/19 07:30 MCHC 33.4 g/dL (32.0-36.0) 10/19/19 07:30 RDW 14.5 % (11.7-14.6) 10/19/19 07:30 Plt Count 211 x1000/uL (130-400) 10/19/19 07:30 MPV 11.7 fL (8.0-11.0) H 10/19/19 07:30 Immature Gran % 0.8 10/19/19 07:30 Neutrophils % 79.4 10/19/19 07:30 Lymphocytes % 11.3 10/19/19 07:30 Monocytes % 8.3 10/19/19 07:30 Eosinophils % 0.0 10/19/19 07:30 Basophils % 0.2 10/19/19 07:30 Absolute Neutrophils 9.24 k/cumm (1.2-6.7) H 10/19/19 07:30 Absolute Lymphocytes 1.32 k/cumm (1.2-3.4) 10/19/19 07:30 Absolute Monocytes 0.97 k/cumm (0.11-0.7) H 10/19/19 07:30 Absolute Eosinophils 0.00 k/cumm (0.0-0.7) 10/19/19 07:30 Absolute Basophils 0.02 k/cumm (0.0-0.2) 10/19/19 07:30 Sodium 141 mmol/L (136-145) D 10/19/19 12:25 Potassium 4.0 mmol/L (3.5-5.1) 10/19/19 12:25 Chloride 103 mmol/L (98-107) 10/19/19 12:25 Carbon Dioxide 27.1 mmol/L (21.0-32.0) 10/19/19 12:25 Anion Gap 10.9 mmol/L (3-11) 10/19/19 12:25 BUN 25 mg/dL (7-18) H 10/19/19 12:25 Creatinine 1.03 mg/dL (0.55-1.02) H 10/19/19 12:25 Estimated GFR/1.73 m2 53.13 (mL/min/1.73m2) 10/19/19 12:25 Glucose 100 mg/dL (74-106) 10/19/19 12:25 Lactate 1.4 mmol/L (0.6-1.4) 10/19/19 12:23 Calcium 12.0 mg/dL (8.5-10.1) H* 10/19/19 12:25 Magnesium 1.5 mg/dL (1.8-2.4) L 10/19/19 07:30 Total Bilirubin 1.2 mg/dL (0.2-1.0) H 10/19/19 12:25 AST 322 U/L (15-37) H 10/19/19 12:25 ALT 101 U/L (14-59) H 10/19/19 12:25 Alkaline Phosphatase 291 U/L (46-116) H 10/19/19 12:25 Ammonia 13 umol/L (11-32) 10/19/19 13:16 Troponin I 0.05 ng/Ml (<0.06) 10/19/19 10:53 Total Protein 6.9 g/dL (6.4-8.2) 10/19/19 12:25 Albumin 3.4 g/dL (3.4-5.0) 10/19/19 12:25 Procalcitonin 12.2 ng/mL 10/19/19 12:23 TSH 2.23 uIU/mL (0.36-3.74) 10/19/19 07:30 Urine Color Yellow (Yellow) 10/19/19 08:06 Urine Clarity Clear (Clear) 10/19/19 08:06 Urine pH 5.5 (5-8) 10/19/19 08:06 Ur Specific [place] >= 1.030 (1.005-1.025) H 10/19/19 08:06 Urine Protein 100 mg/dL (Negative) H 10/19/19 08:06 Urine Ketones Trace mg/dL (Negative) H 10/19/19 08:06 Urine Blood Small (Negative) H 10/19/19 08:06 Urine Nitrite Negative (Negative) 10/19/19 08:06 Urine Bilirubin Small (Negative) H 10/19/19 08:06 Urine Urobilinogen 0.2 EU/dL (Up TO 0.2) 10/19/19 08:06 Ur Leukocyte Esterase Negative (Negative) 10/19/19 08:06 Urine RBC 0-2 HPF (0-2) 10/19/19 08:06 Urine WBC 3-5 HPF (0-5) 10/19/19 08:06 Ur Epithelial Cells Few HPF (Negative) 10/19/19 08:06 Urine Crystals Few amorphous HPF (Negative) 10/19/19 08:06 Urine Bacteria Few HPF (Negative) 10/19/19 08:06 Urine Casts 0-2 coarse granular LPF (Negative) 10/19/19 08:06 Urine Mucus Negative (Negative) 10/19/19 08:06 Urine Other (Negative) 10/19/19 08:06 Ur Culture Indicated? No 10/19/19 08:06 Urine Glucose Negative mg/dL (Negative) 10/19/19 08:06 Urine Opiates Screen Negative (Negative) 10/19/19 08:06 Urine Methadone Screen Negative (Negative) 10/19/19 08:06 Acetaminophen < 2 ug/mL (10-30) L 10/19/19 07:30 Ur Barbiturates Screen Negative (Negative) 10/19/19 08:06 Ur Tricyclics Screen Negative (Negative) 10/19/19 08:06 Ur Amphetamines Screen Negative (Negative) 10/19/19 08:06 U Benzodiazepines Scrn Negative (Negative) 10/19/19 08:06 Urine Cocaine Screen Negative (Negative) 10/19/19 08:06 Ur THC Screen Positive (Negative) A 10/19/19 08:06
--- NOTE | 2019-10-20 14:22 | INITIAL_ITS ---
- If Service Date Differs Date of service: 10/20/19 Time of Service: 11:00 Care Management Initial Assess REASON FOR HOSPITALIZATION:: Encephalopathy, lung cancer, failure to thrive, hypercalcemia PAST MEDICAL HISTORY/PAST SURGICAL HISTORY:: Abnormal liver function test. Adenomatous colon polyp. Degenerative joint disease. Depression with anxiety. Elevated blood pressure reading without diagnosis of hypertension. Epicondylitis elbow, medial. Fibromyalgia. Gastritis. History of alcohol abuse. Quit February 2017. Hx of rheumatic fever. Hx of skin cancer, basal cell. Hyperlipidemia. Insomnia. Itch of skin. Mild cognitive impairment (Acute). M urmur, cardiac. Nightmares. Osteopenia. Reflux esophagitis. Situational stress. Spastic colon. Tinea unguium PREVIOUS FUNCTIONAL STATUS/SOCIAL/FAMILY SUPPORTS:: Aury lives at home with her SO Myra in [place], [place]. She has two dogs which Myra states she loves very much. Aury has not been able to care for herself in some time, she has confusion at baseline and has been unable to eat or drink for days per her spouse. CURRENT FUNCTIONAL STATUS:: Aury is not alert when CM is in the room. She is restless at times spouse is able to provide history and engage with CM during assessment. Myra would like Aury to be able to return home with hospice. He wants Aury to be home with her dogs when she dies, and he believe time is the time of Our Lord and its a good time for her to pass. Myra states he is unable to bring Aury home until , he wants to be able to clean the home and insulate the floor before he brings her there. CM did acknowledge Myra wishes and reviewed comfort measures here at the hospital also as an option. Myra states he does want Aury to be comfortable, he does not want lab draws of vital signs and states that she should receive Morphine for pain if needed. Luiz was here from home health and hospice plan will be made for discharge home with hospice if Aury has not passed before then. ADVANCE DIRECTIVES:: On file Myra Alva spouse is the agent Has patient been provided with information about the portal?: No Did the patient sign up for the portal?: No CODE STATUS:: DNR/DNI INSURANCE COVERAGE / FINANCIAL ISSUES:: Medicare CURRENT HOME/COMMUNITY SERVICES/EQUIPMENT:: None PRIMARY CARE PHYSICIAN:: Jojo Burrell NP POTENTIAL DISCHARGE NEEDS:: Aury will remain at [facility] until plan will be for her to discharge home with hopsice on . PATIENT/FAMILY EDUCATION NEEDS:: Education related to options for comfort care here at [facility], hospice care and home health services as well as discharge planning and disposition. ANTICIPATED BARRIERS TO DISCHARGE:: Spouse would like to take the patient home however due to home situation and supports at home needs more time to prepare the home. TRANSPORTATION:: Via [facility] if Aury is discharged home. PLAN:: Aury will transition to [employer] today and per provider Morphine drip to be started with a goal of symptom management and pain control. Spouse will plan to be here with patient to provide support, there is also a friend Yumi in the room that the spouse identifies as a source of support. Plan will be for patient to return home on after [place] after he has had time to clean up the home and prep an area for a hospital bed. Home Health and Hospice will plan to do a same day admission on if Aury does not pass away prior to that in the hospital. CM will follow up with [facility] with updates and plans for discharge. CM to continue to provide support to patient and family discharge planning and end of life care.
[2019-10-21] MEDS: LORazepam 2 MG/ML VIAL 0.5 MG IVP ×2 (04:16→11:53)
[2019-10-21] MEDS: Normal Saline Flush 10 ML SYR IVP ×2 (04:16→11:54)
--- NOTE | 2019-10-21 15:48 | PGE_ITS ---
Date of Service Date of service: 10/21/19 Time of Service: 15:48 Assessment and Plan Assessment and plan (1) Metastatic lung cancer (metastasis from lung to other site): Status: Acute Assessment and plan: Continue comfort measures (2) Encephalopathy acute: Status: Acute Assessment and plan: Multifactorial, due to hypercalcemia, possible brain metastases, or delirium on top of her dementia. Comfort measures only. (3) Failure to thrive: Status: Acute Assessment and plan: Continue comfort measures. (4) Dehydration: Status: Acute Assessment and plan: No longer on IVF. The did ask nursing a question about possible feeding tube earlier todebbie garcia. Will clarify his wishes when I see him. I do feel this would be futile at this point. (5) Hypercalcemia: Status: Acute Assessment and plan: In setting of malignancy and dehydration. S/p calcitonin in ER. Focusing on comfort measures only. (6) DVT prophylaxis: Status: Acute Assessment and plan: Patient is on comfort measures - not indicated (7) Discharge planning issues: Status: Acute Assessment and plan: DNR/DNI On comfort measures only. ?home with hospice Subjective Subjective Interval history since last seen: Ms Alva is resting comfortably when I came to see her - I did not wake her up. Per nursing, she needed 2 boluses of morphine overnight and 1 more during the day today. She also got 1 dose of ativan. Since then, she has been very comfortable. Exam Narrative Exam Narrative: General: frail, elderly female, looks like she is dying, comfortable in bed, not waking up to my presence in the room HEENT: eyes closed, dry MM Heart: RRR, no m/r/g Lungs: CTAB Abdomen: covered by blankets Extremities: covered by blankets Objective Objective Clinical Data: Vital Signs Temperature 37.3 C 10/20/19 07:10 Temperature Source Tympanic 10/20/19 07:10 Pulse 106 H 10/20/19 07:10 Pulse Rhythm Regular 10/19/19 20:07 Pulse 96 H 10/19/19 16:20 Respiratory Rate 18 10/20/19 07:10 Respiratory Effort Non-Labored 10/21/19 15:30 Respiratory Depth Normal 10/21/19 15:30 Respiratory Pattern Normal 10/21/19 15:30 Blood Pressure 164/68 H 10/20/19 07:10 Blood Pressure Mean 88 10/19/19 16:00 Pulse Oximetry 93 L 10/20/19 07:10 Oxygen Delivery Method Room Air 10/20/19 07:10 Oxygen Flow Rate 0 10/20/19 07:10 Pain Level 0 10/20/19 15:46 Intake & Output 10/20/19 10/21/19 10/21/19 23:59 11:59 23:59 Intake Total 999. Output Total 250 / 1050 600 / 950 350 / 950 Balance 750 / 953.333 -590 / -940 -350 / -940 Intake: IV 999. Output: Urine 250 / 1050 600 / 950 350 / 950 Other: Urine Color Yellow Light Veronica Light Veronica Urine Appearance Clear Clear Clear Laboratory Results WBC 11.64 k/cumm (4.4-10.8) H 10/19/19 07:30 RBC 4.70 m/cumm (4.00-5.20) 10/19/19 07:30 Hgb 13.2 g/dL (12.0-15.5) 10/19/19 07:30 Hct 39.5 % (36.0-46.0) 10/19/19 07:30 MCV 84.0 fL (80-95) 10/19/19 07:30 MCH 28.1 pg (27.0-33.0) 10/19/19 07:30 MCHC 33.4 g/dL (32.0-36.0) 10/19/19 07:30 RDW 14.5 % (11.7-14.6) 10/19/19 07:30 Plt Count 211 x1000/uL (130-400) 10/19/19 07:30 MPV 11.7 fL (8.0-11.0) H 10/19/19 07:30 Immature Gran % 0.8 10/19/19 07:30 Neutrophils % 79.4 10/19/19 07:30 Lymphocytes % 11.3 10/19/19 07:30 Monocytes % 8.3 10/19/19 07:30 Eosinophils % 0.0 10/19/19 07:30 Basophils % 0.2 10/19/19 07:30 Absolute Neutrophils 9.24 k/cumm (1.2-6.7) H 10/19/19 07:30 Absolute Lymphocytes 1.32 k/cumm (1.2-3.4) 10/19/19 07:30 Absolute Monocytes 0.97 k/cumm (0.11-0.7) H 10/19/19 07:30 Absolute Eosinophils 0.00 k/cumm (0.0-0.7) 10/19/19 07:30 Absolute Basophils 0.02 k/cumm (0.0-0.2) 10/19/19 07:30 Sodium 141 mmol/L (136-145) D 10/19/19 12:25 Potassium 4.0 mmol/L (3.5-5.1) 10/19/19 12:25 Chloride 103 mmol/L (98-107) 10/19/19 12:25 Carbon Dioxide 27.1 mmol/L (21.0-32.0) 10/19/19 12:25 Anion Gap 10.9 mmol/L (3-11) 10/19/19 12:25 BUN 25 mg/dL (7-18) H 10/19/19 12:25 Creatinine 1.03 mg/dL (0.55-1.02) H 10/19/19 12:25 Estimated GFR/1.73 m2 53.13 (mL/min/1.73m2) 10/19/19 12:25 Glucose 100 mg/dL (74-106) 10/19/19 12:25 Lactate 1.4 mmol/L (0.6-1.4) 10/19/19 12:23 Calcium 12.0 mg/dL (8.5-10.1) H* 10/19/19 12:25 Magnesium 1.5 mg/dL (1.8-2.4) L 10/19/19 07:30 Total Bilirubin 1.2 mg/dL (0.2-1.0) H 10/19/19 12:25 AST 322 U/L (15-37) H 10/19/19 12:25 ALT 101 U/L (14-59) H 10/19/19 12:25 Alkaline Phosphatase 291 U/L (46-116) H 10/19/19 12:25 Ammonia 13 umol/L (11-32) 10/19/19 13:16 Troponin I 0.05 ng/Ml (<0.06) 10/19/19 10:53 Total Protein 6.9 g/dL (6.4-8.2) 10/19/19 12:25 Albumin 3.4 g/dL (3.4-5.0) 10/19/19 12:25 Procalcitonin 12.2 ng/mL 10/19/19 12:23 TSH 2.23 uIU/mL (0.36-3.74) 10/19/19 07:30 Urine Color Yellow (Yellow) 10/19/19 08:06 Urine Clarity Clear (Clear) 10/19/19 08:06 Urine pH 5.5 (5-8) 10/19/19 08:06 Ur Specific [place] >= 1.030 (1.005-1.025) H 10/19/19 08:06 Urine Protein 100 mg/dL (Negative) H 10/19/19 08:06 Urine Ketones Trace mg/dL (Negative) H 10/19/19 08:06 Urine Blood Small (Negative) H 10/19/19 08:06 Urine Nitrite Negative (Negative) 10/19/19 08:06 Urine Bilirubin Small (Negative) H 10/19/19 08:06 Urine Urobilinogen 0.2 EU/dL (Up TO 0.2) 10/19/19 08:06 Ur Leukocyte Esterase Negative (Negative) 10/19/19 08:06 Urine RBC 0-2 HPF (0-2) 10/19/19 08:06 Urine WBC 3-5 HPF (0-5) 10/19/19 08:06 Ur Epithelial Cells Few HPF (Negative) 10/19/19 08:06 Urine Crystals Few amorphous HPF (Negative) 10/19/19 08:06 Urine Bacteria Few HPF (Negative) 10/19/19 08:06 Urine Casts 0-2 coarse granular LPF (Negative) 10/19/19 08:06 Urine Mucus Negative (Negative) 10/19/19 08:06 Urine Other (Negative) 10/19/19 08:06 Ur Culture Indicated? No 10/19/19 08:06 Urine Glucose Negative mg/dL (Negative) 10/19/19 08:06 Urine Opiates Screen Negative (Negative) 10/19/19 08:06 Urine Methadone Screen Negative (Negative) 10/19/19 08:06 Acetaminophen < 2 ug/mL (10-30) L 10/19/19 07:30 Ur Barbiturates Screen Negative (Negative) 10/19/19 08:06 Ur Tricyclics Screen Negative (Negative) 10/19/19 08:06 Ur Amphetamines Screen Negative (Negative) 10/19/19 08:06 U Benzodiazepines Scrn Negative (Negative) 10/19/19 08:06 Urine Cocaine Screen Negative (Negative) 10/19/19 08:06 Ur THC Screen Positive (Negative) A 10/19/19 08:06
--- NOTE | 2019-10-21 17:34 | CMPROGNOTE_ITS ---
- If Service Date Differs Date of service: 10/21/19 Time of Service: 17:34 Care Management Progress Note S/O: Aury was sleeping when CM came to see her on several occasions. She is receiving IV morphine via pump and required 2 boluses last night and one during the day today to keep her comfortable. She is lethargic and confused when awake. Per nursing, Aury's does not seem clear about the goals of comfort care and was asking about a feeding tube. Dr. Wilkes will discuss this with him tomorrow per her note. A: Aury is a 69 year old woman admitted with metastatic lung cancer. on 10/19/19. P: Aury transition to [employer] yesterday and was started on a morphine drip with a goal of symptom management and pain control. Spouse will plan to be here with patient to provide support. Plan will be for patient to return home tomorrow after has had time to clean up the home and prep an area for a hospital bed. Home Health and Hospice will plan to do a same day admission on if Aury does not pass away prior to that in the hospital. CM will follow up with [facility] with updates and plans for discharge. CM to continue to provide support to patient and family discharge planning and end of life care.
--- NOTE | 2019-10-22 10:31 | W.PM.DS.N ---
Date of service: 10/22/19 Time of Service: 10:32 DS: Diagnosis Discharge Diagnosis (1) Metastatic lung cancer (metastasis from lung to other site): Start date: 10/22/19 Start time: 10:32 Status: Acute Asessment and Plan: Going home on hospice. Subcu morphine pump for comfort. Awake but not alert. Continue pain pump for comfort. (2) Encephalopathy acute: Start date: 10/22/19 Start time: 10:33 Status: Acute Asessment and Plan: See above (3) Failure to thrive: Status: Acute (4) Dehydration: Status: Acute (5) Hypercalcemia: Status: Acute (6) DVT prophylaxis: Status: Acute (7) Discharge planning issues: Status: Acute Discharge Plan Disposition Patient Disposition: HOME Condition: Deteriorating Discharge Details Chief Complaint: GenMedical Reason For Visit: ENCEPHALOPATHY,LIVER CANCER, FAILURE TO THRIVE Admit Date/Time: 10/19/19 14:43 Admit Provider: Michell Wilkes Attending Provider: Michell Wilkes Primary Care Provider: Jojo Burrell ED Provider: WilsonPeg nicholson [facility] Course Hospital Course: 69 year old female with PMHx of dementia, aortic regurgitation, fibromyalgia, canabis abuse, who was brought to [facility] ED today by ambulance for several days of progressively declining mental status and no PO intake. Upon presentation to ED patient was dehydrated, restless, nonverbal and not following commands. Imaging revealing multiple hepatic masses suspicious for metastic disease, presumed bone mets RLL mass suspicious for primary pulmonary carcinoma and throacic adenopathy. She was admitted for hospice care as her wished for her to go home and . Over course of hospitalization, she was seen by palliative care and found to be dying. Hospice was contacted and the decision was made to make her comfort care only. She is on a morphine subcu pump which appears to be keeping her comfortable. She will be going home on hospice today. She is alert but nonverbal. Appears comfortable. Home Meds and New Rx's Prescriptions: No Action Spiriva with HandiHaler 18 mcg capsule, w/inhalation device 1 cap IH DAILY RF: 0 cyclobenzaprine 10 mg tablet 10 mg PO TID RF: 0 ranitidine HCl 300 mg capsule 300 mg PO BID RF: 0 cyanocobalamin (vitamin B-12) 1,000 mcg capsule 1,000 mcg PO DAILY RF: 0 cholecalciferol (vitamin D3) 1,000 unit capsule 1,000 unit PO DAILY RF: 0 sertraline [Zoloft] 50 mg tablet 150 mg PO DAILY RF: 0 memantine [Namenda] 5 mg Tablet 5 mg PO QPM RF: 0 atorvastatin [Lipitor] 20 mg Tablet 20 mg PO QPM RF: 0 Discharge Instructions Instructions: Hospice Care (GEN) Activity:: Activity as Tolerated Equipment/Supplies:: No Equipment Needed Diet:: Other Discharge Orders Discharge Orders: Discharge Order (Routine); Ordered 10/22/19 Ordered By: Ana Martinez DS: Summary Status at Discharge Functional status at discharge: bed bound Overall status at discharge: other Mental Status: other Speech and Movement: other Mood: other Affect: other Exam Narrative Exam Narrative: General: frail, elderly female, looks like she is dying, comfortable in bed, not waking up to my presence in the room HEENT: eyes closed, dry MM Heart: RRR, no m/r/g Lungs: CTAB Abdomen: covered by blankets Extremities: covered by blankets Psych Mental Status: other Speech and Movement: other Mood: other Affect: other DS: Data Vitals/I&O Vitals and I&O: Vital Signs Temperature 37.3 C 10/20/19 07:10 Temperature Source Tympanic 10/20/19 07:10 Pulse 106 H 10/20/19 07:10 Pulse Rhythm Regular 10/19/19 20:07 Pulse 96 H 10/19/19 16:20 Respiratory Rate 18 10/20/19 07:10 Respiratory Effort Non-Labored 10/22/19 07:10 Respiratory Depth Deep 10/22/19 07:10 Respiratory Pattern Normal 10/22/19 07:10 Blood Pressure 164/68 H 10/20/19 07:10 Blood Pressure Mean 88 10/19/19 16:00 Pulse Oximetry 93 L 10/20/19 07:10 Oxygen Delivery Method Room Air 10/20/19 07:10 Oxygen Flow Rate 0 10/20/19 07:10 Pain Level 0 10/20/19 15:46 Intake & Output 10/21/19 10/21/19 10/22/19 11:59 23:59 11:59 Intake Total 10 10 Output Total 600 / 950 350 / 950 600 / 600 Balance -590 / -940 -350 / -940 -600 / -600 Intake: IV Output: Urine 600 / 950 350 / 950 600 / 600 Other: Urine Color Light Veronica Light Veronica Dark Veronica Urine Appearance Clear Clear Cloudy Comment annita was leaking, same readvance. will continue to monitor for leaking Data Completed and Pending Labs on day of discharge: Preliminary micro results at discharge 10/19/19 08:30 Blood Culture - Preliminary Blood NO GROWTH 48 HOURS 10/19/19 08:15 Blood Culture - Preliminary Blood NO GROWTH 48 HOURS [facility] Medical History Abnormal liver function test Adenomatous colon polyp Degenerative joint disease Depression with anxiety Elevated blood pressure reading without diagnosis of hypertension Epicondylitis elbow, medial Fibromyalgia Gastritis History of alcohol abuse Quit February 2017 Hx of rheumatic fever Hx of skin cancer, basal cell Hyperlipidemia Insomnia Itch of skin Mild cognitive impairment (Acute) Murmur, cardiac Nightmares Osteopenia Reflux esophagitis Situational stress Spastic colon Tinea unguium Surgical History Colonoscopy - MAC (05/21/17) EGD - MAC (05/21/17) EGD - MAC (09/24/17) skin lesion excision face and right shoulder Family History Other Brain malignancy Liver cancer [place] (myocardial infarction) Skin cancer Social History Smoking/Tobacco Use Status: Current every day Tobacco Type: cigarettes Alcohol Intake: former Year quit: 2016 Drug use: Daily Substance use type: marijuana Details: Hx of LSD and mushroom use Household members: significant other
--- NOTE | 2019-10-22 11:29 | PDOC.CMDIS ---
- If Service Date Differs Date of service: 10/22/19 Time of Service: 11:29 LACE Index Scoring Tool - Questions: Length of Stay (in days): 7 - 13 Acuity (Admit via E.D.?): Yes Comorbidities: Any Tumor, Dementia, Metastatic Solid Tumor E.D. Visits: 1 - Answers: Total Score: 14 Risk of Readmission: High Risk Care Management Discharge Reason for Hospitalization: Encephalopathy, lung cancer, failure to thrive, hypercalcemia Discharge Plan: Aury is being discharged home to hospice with her spouse today. She will be transported by ambulance ([facility]) at time of discharge. CM contacted [facility] and coordinated same day admission and orders with hospice. was notified of discharge home. Aury will be discharged with a CADD pump and [facility] will change to their pump prior to discharge. [facility] will deliver the hospital bed between 1200 and 1300 today and the spouse has someone waiting for delivery. CM educated spouse discharge plan, and who to contact after discharge for questions or concerns. CM contacted primary care office to notify of patients discharge home to Hospice. Patient/Family Education Needs: Discharge education, limitatins and services including home health and hospice care. Spouse has questions r/t CADD and medication management. [facility] will meet with him at [facility] to change the pump over and at home to review all the medications and how to use equipment. Spouse feels ready to take Aury home and care for her and states he has friends at home as well to assist. Services Needed at Discharge: DME Agency, Home Health Care Services, Transportation
--- NOTE | 2019-10-22 14:38 | NUR.NOTE ---
Nursing Note: This patient's CADD pump switched over to a hospice CADD unit at approximately 1230. This RN along with Nayla RN from hospice changed the units. New hospice CADD programmed per hospital MAR order. Remaining volume, dosage delivered, volume infused, bolus settings, interval, rate, 4 hour limit, medication and concentration reviewed. Pharmacy was notified morphine cassette left home with patient on hospice CADD. Please reference CADD assessment in worklist for exact numbers.
== END 2019-10-22 14:10 | disposition home or self-care (01) | DRG 71 ==
LOC: ER 15:10 → MS 16:48
PROVIDERS: Admitting Provider Internal Medicine; Emergency Provider Student in an Organized Health Care Education/Training Program; PCP Nurse Practitioner Family; Visit Provider Internal Medicine
DX: G93.49 Other encephalopathy (principal); Z68.1 Body mass index [BMI] 19.9 or less, adult; C78.7 Secondary malignant neoplasm of liver and intrahepatic bile duct; C79.51 Secondary malignant neoplasm of bone; C34.31 Malignant neoplasm of lower lobe, right bronchus or lung; R64 Cachexia; R62.7 Adult failure to thrive; E86.0 Dehydration; E83.52 Hypercalcemia; R63.0 Anorexia; F03.90 Unspecified dementia, unspecified severity, without behavioral disturbance, psychotic disturbance, mood disturbance, and anxiety; Z51.5 Encounter for palliative care; F17.210 Nicotine dependence, cigarettes, uncomplicated; F12.10 Cannabis abuse, uncomplicated; R59.9 Enlarged lymph nodes, unspecified
CPT/HCPCS: 36410; 36415; 74177; 80053; 80307; 84145; 87040; 93005; 96361; 96365; 96366; 96367; 96372; 96375; 96376; 99223; 99231; 99232; 99239; 99255; 99285; 70450; 71045; 71046; 71260; 76700; 80329; 81003; 81015; 82140; 83605; 83735; 84443; 84484; 85025; 93010; J0630; J1630; J2060; J2270; J3490